=== PATIENT | male | born 1980 | race Two or more races ===

== ENCOUNTER → 2017-02-21 | Emergency (ER) | payer MEDICAID ==
[~2017-02-21] VITALS: Ht 172.7 cm; Wt 51.7 kg
[~2017-02-21] MED LIST: KETOROLAC TROMETH 30 MG/ML 1ML VIAL IV ONE
[2017-02-21 16:47] LABS: Albumin 4.1 g/dL (3.4-5.0); BUN/Creatinine Ratio 18.6; Bilirubin, Total 0.4 mg/dL (0.2-1.0); Calcium 8.7 mg/dL (8.5-10.1); Potassium 4.3 mmol/L (3.5-5.1); Total Protein 7.8 g/dL (6.4-8.2)
[2017-02-21 16:56] LABS: Basophils # (auto) 0 uL; Basophils % (auto) 0.5 % (0.0-2.0); Eosinophils # (auto) 0.1 uL; Hematocrit 43.2 % (41.0-53.0); Hemoglobin 14.7 g/dL (13.5-17.5); Lymphocytes # (auto) 1.4 uL; Lymphocytes % (auto) 28.7 % (10.0-50.0); Mean Corpuscular Hemoglobin 31.5 pg (28.0-32.0); Mean Corpuscular Hgb Conc. 34.1 g/dL (32.0-36.0); Mean Corpuscular Volume 92.2 fL (80.0-100.0); Mean Platelet Volume 10.6 fL (6.9-10.8); Monocytes # (auto) 0.2 uL; Monocytes % (auto) 4.7 % (0.0-12.0); Neutrophils # (auto) 3.2 uL; Neutrophils % (auto) 65.1 % (37.0-80.0); Platelet Count (auto) 183 10^3/uL (140-450); Red Cell Distribution Width 12.7 % (11.8-14.3); White Blood Cell 4.9 10^3/uL (4.4-10.8)
[2017-02-22 03:11] VITALS: BP 115/76
== END | disposition home or self-care (01) ==
LOC: ER 15:00
DX: M13.812 Other specified arthritis, left shoulder (principal); M54.2 Cervicalgia; Z88.0 Allergy status to penicillin; Z88.1 Allergy status to other antibiotic agents; G80.9 Cerebral palsy, unspecified
CPT/HCPCS: 36415; 71010; 80053; 85025; 96374

== ENCOUNTER 2017-05-26 08:15 | Emergency (ER) | payer MEDICAID ==
[~2017-05-26] VITALS: Ht 172.7 cm; Wt 47.6 kg
[2017-05-26 08:58] LABS: Basophils # (auto) 0 uL; Basophils % (auto) 0.4 % (0.0-2.0); Eosinophils # (auto) 0.1 uL; Hematocrit 42.3 % (41.0-53.0); Hemoglobin 14.6 g/dL (13.5-17.5); Lymphocytes # (auto) 1.5 uL; Lymphocytes % (auto) 17.7 % (10.0-50.0); Mean Corpuscular Hemoglobin 31.7 pg (28.0-32.0); Mean Corpuscular Hgb Conc. 34.4 g/dL (32.0-36.0); Mean Corpuscular Volume 92.1 fL (80.0-100.0); Monocytes # (auto) 0.5 uL; Monocytes % (auto) 5.3 % (0.0-12.0); Neutrophils # (auto) 6.5 uL; Neutrophils % (auto) 75.6 % (37.0-80.0); Nucleated Red Blood Cells % 0.1 %; Platelet Count (auto) 185 10^3/uL (140-450); Red Blood Cells 4.59 10^6/uL (4.5-5.90); Red Cell Distribution Width 12.7 % (11.8-14.3); White Blood Cell 8.6 10^3/uL (4.4-10.8)
[2017-05-26 09:28] LABS: Albumin 4.1 g/dL (3.4-5.0); BUN/Creatinine Ratio 21.7; Bilirubin, Total 0.5 mg/dL (0.2-1.0); Total Protein 7.6 g/dL (6.4-8.2)
[2017-05-26] MEDS ORDERED: Acetam/CODEINE 120mg/12mg per 5mL UD PO ONE (13:30)
[2017-05-26] MEDS ORDERED: KETOROLAC TROMETH 60MG/2ML VIAL IM ONE (15:45)
[2017-05-26 16:09] VITALS: BP 114/67
== END 2017-05-26 16:24 | disposition home or self-care (01) ==
LOC: ER 08:15
DX: R07.89 Other chest pain (principal); M25.512 Pain in left shoulder; G80.9 Cerebral palsy, unspecified; Z88.1 Allergy status to other antibiotic agents; Z88.0 Allergy status to penicillin
CPT/HCPCS: 36415; 71046; 73030; 80053; 84484; 85025; 93005; 96372; 99285; J1885

== ENCOUNTER 2018-09-28 21:35 | Emergency (ER) | payer MEDICAID ==
[~2018-09-28] VITALS: Ht 170.2 cm; Wt 49.9 kg
[2018-09-28] MEDS ORDERED: FAMOTIDINE (10MG/ML) 2ML VL IV ONE (22:00)
[2018-09-28] MEDS ORDERED: methylPREDNISolone SOD SUCC 125 MG/2 ML VL IV ONE (22:00)
[2018-09-28] MEDS ORDERED: EPINEPHrine HCL 1 MG/1 ML AMP SC ONE (22:00)
[2018-09-28] MEDS ORDERED: diphenhdrAMINE HCL 50 MG/1 ML VL IV ONE (22:00)
[2018-09-28 22:11] VITALS: BP 124/86
[2018-09-28] MEDS ORDERED: SODIUM CHLORIDE 0.9% 1,000 ML IV ONE (23:30)
== END 2018-09-29 01:47 | disposition left against medical advice (07) ==
LOC: ER 21:37
DX: T78.40XA Allergy, unspecified, initial encounter (principal); Z53.21 Procedure and treatment not carried out due to patient leaving prior to being seen by health care provider; X58.XXXA Exposure to other specified factors, initial encounter
CPT/HCPCS: J0171; J1200; J2930; J3490; J7030; 96372; 96374; 96375

== ENCOUNTER 2020-02-12 13:22 | Inpatient (IN) | payer MEDICAID ==
[~2020-02-12] VITALS: Ht 175.3 cm; Wt 56.5 kg
[2020-02-12] MEDS ORDERED: LORazepam 2MG/ML-1ML VIAL IV ONE ×2 (14:00→15:30)
[2020-02-12] MEDS ORDERED: diphenhdrAMINE HCL 50 MG/1 ML VL IV ONE (14:00)
[2020-02-12 14:19] LABS: Basophils # (auto) 0 10 ^3/uL (0-0.2); Basophils % (auto) 0.5 % (0.0-2.0); Eosinophils # (auto) 0.1 10 ^3/uL (0-0.8); Hematocrit 43.3 % (41.0-53.0); Hemoglobin 15.2 g/dL (13.5-17.5); Lymphocytes # (auto) 1.4 10 ^3/uL (0.4-5.4); Lymphocytes % (auto) 28.1 % (10.0-50.0); Mean Corpuscular Hemoglobin 31.6 pg (28.0-32.0); Mean Corpuscular Hgb Conc. 35.1 g/dL (32.0-36.0); Monocytes # (auto) 0.3 10 ^3/uL (0-1.3); Monocytes % (auto) 5.7 % (0.0-12.0); Neutrophils # (auto) 3.3 10 ^3/uL (1.6-8.6); Neutrophils % (auto) 64.7 % (37.0-80.0); Nucleated Red Blood Cells % 0.1 %; Platelet Count (auto) 209 10^3/uL (140-450); Red Blood Cells 4.81 10^6/uL (4.5-5.90); Red Cell Distribution Width 12.7 % (11.8-14.3); White Blood Cell 5.1 10^3/uL (4.4-10.8)
[2020-02-12 14:36] LABS: Albumin 4.1 g/dL (3.4-5.0); Calcium 9.3 mg/dL (8.5-10.1); Potassium 3.7 mmol/L (3.5-5.1)
[2020-02-12 14:38] LABS: BUN/Creatinine Ratio 9.7
[2020-02-12 14:48] LABS: Bilirubin, Total 0.8 mg/dL (0.2-1.0); Total Protein 7.6 g/dL (6.4-8.2)
[2020-02-12] MEDS ORDERED: MORPHINE SULF INJ 2 MG/ML SYRINGE 1ML IV PRN (15:30)
[2020-02-12] MEDS ORDERED: NITROGLYCERIN 0.4 MG SL TAB SL PRN (15:30)
[2020-02-12] MEDS ORDERED: LABETALOL HCL 5 MG/ML 4ML SYRINGE IV PRN (15:30)
[2020-02-12] MEDS ORDERED: [UNRECOGNIZED DRUG - CODE] PO (16:09)
[2020-02-12] MEDS ORDERED: ACET-1304 PO (16:09)
[2020-02-12 16:34] LABS: Urine WBC None Seen /hpf (0 - 3)
[2020-02-12] MEDS: D5W/SOD CHLO 0.9% 1,000 ML IV SCH (16:53)
[2020-02-12 17:02] LABS: Urine Bacteria NONE SEEN /hpf (None Seen); Urine Blood Negative /uL (Negative); Urine Specific Gravity 1.005 (1.001-1.035)
[2020-02-12] MEDS ORDERED: LORazepam 2MG/ML-1ML VIAL IV PRN (18:00)
[2020-02-12 21:15] LABS: Amphetamine Screen, Urine NEGATIVE (NEGATIVE); Barbiturate Scree,Urine NEGATIVE (NEGATIVE); Benzodiazephine Screen, Urine NEGATIVE (NEGATIVE); Cannabinoid Screen, Urine NEGATIVE (NEGATIVE); Cocaine Screen, Urine NEGATIVE (NEGATIVE); Opiate Scree,Urine NEGATIVE (NEGATIVE); Phencyclidine Screen, Urine NEGATIVE (NEGATIVE)
[2020-02-12] MEDS ORDERED: levETIRAcetam 500 MG/5ML INJ IV ONE (22:57)
[2020-02-13] MEDS: D5W/SOD CHLO 0.9% 1,000 ML IV SCH ×2 (02:18→18:29)
[2020-02-13 07:08] LABS: Basophils # (auto) 0 10 ^3/uL (0-0.2); Basophils % (auto) 0.7 % (0.0-2.0); Eosinophils # (auto) 0.1 10 ^3/uL (0-0.8); Eosinophils % (auto) 2.2 % (0.0-7.0); Hematocrit 42.2 % (41.0-53.0); Hemoglobin 14.7 g/dL (13.5-17.5); Lymphocytes # (auto) 1.7 10 ^3/uL (0.4-5.4); Mean Corpuscular Hemoglobin 31.9 pg (28.0-32.0); Mean Corpuscular Hgb Conc. 34.7 g/dL (32.0-36.0); Monocytes # (auto) 0.3 10 ^3/uL (0-1.3); Neutrophils % (auto) 48.1 % (37.0-80.0); Nucleated Red Blood Cells % 0.1 %; Platelet Count (auto) 184 10^3/uL (140-450); Red Blood Cells 4.59 10^6/uL (4.5-5.90); Red Cell Distribution Width 12.8 % (11.8-14.3); White Blood Cell 4.2 10^3/uL (4.4-10.8)
[2020-02-13 07:23] LABS: Albumin 3.7 g/dL (3.4-5.0); Calcium 8.8 mg/dL (8.5-10.1); Magnesium 2.6 mg/dL (1.6-2.6); Potassium 3.6 mmol/L (3.5-5.1)
[2020-02-13 07:29] LABS: BUN/Creatinine Ratio 15.4; Bilirubin, Total 1.1 mg/dL (0.2-1.0); Total Protein 6.9 g/dL (6.4-8.2)
[2020-02-13 07:56] LABS: INR 1.03 (0.9-1.15); Partial Thromboplastin Time 28.3 sec (23.0-31.2)
[2020-02-13] MEDS ORDERED: NITROGLYCERIN 0.4 MG SL TAB SL PRN (10:45)
[2020-02-13] MEDS ORDERED: CLINDAMYCIN 600MG IV 50 ML IV ONE (10:45)
[2020-02-13] MEDS ORDERED: ONDANSETRON HCL 4 MG/2 ML VIAL IV PRN (10:45)
[2020-02-13] MEDS ORDERED: ALUM & MAG HYDROX-SIMETH LIQ(MAALOX) 30 ML PO PRN (10:45)
[2020-02-13] MEDS ORDERED: MORPHINE SULF INJ 2 MG/ML SYRINGE 1ML IV PRN ×2 (10:45)
[2020-02-13] MEDS ORDERED: DOCUSATE SOD 100 MG CAP PO PRN (10:45)
[2020-02-13] MEDS ORDERED: HYDROcodone-ACET 5/325MG TAB PO PRN (10:45)
[2020-02-13] MEDS: PANTOPRAZOLE 40 MG/10 ML VIAL INJ IV SCH (11:02)
[2020-02-13] MEDS: ENOXAPARIN SOD 40 MG/0.4 ML SYRINGE SC SCH (11:02)
--- NOTE | 2020-02-13 11:12 | NUR ---
EEG-ELECTROENCEPHALOGRAM COMPLETED AT BEDSIDE @ 10:50.
--- NOTE | 2020-02-13 11:15 | NUR ---
CAREGIVER SWAPNIL LERNER AT BEDSIDE ASSISTING WITH ADMISSION PROCESS.
--- NOTE | 2020-02-13 11:15 | NUR ---
MS admit from ER WINIFRED OLIVARES admitted to tele/MS after SBAR received. Patient oriented to YUSUF TIJERINA, RN primary RN, TELE unit, room 296, bed B, and unit policies regarding patient care and visiting hours. Patient weighed by bedscale and encouraged to call if they need something. All questions and concerns addressed, patient verbalized understanding.
[2020-02-13] MEDS: SODIUM CHLORIDE 0.9% 1,000 ML IV SCH (12:02)
[2020-02-13 12:10] VITALS: BP 110/74
[2020-02-13] MEDS ORDERED: AZTREONAM 1GM INJ 1 GM in D5W 5% 50 ML IV ONE (12:30)
[2020-02-13 12:36] VITALS: BP 110/74
[2020-02-13 13:00] VITALS: BP_SYST 144; BP_SYST 97; BP_DIAS 58; BP_DIAS 85
[2020-02-13] MEDS: ACETAMINOPHEN 325 MG TAB PO PRN (13:15)
--- NOTE | 2020-02-13 13:54 | NUR ---
WOUND CARE NOTE: Wound care in to see patient per wound care request regarding low Paco score of 14, cerebral palsy patient, putting patient to high risk for skin breakdown. Patient is 39 years old male admitted for Seizures. Patient is resting in bed in Rm. 296B. Patient is awake, and non-verbal. Patient appears to be in no pain using Chand Palacios Faces Pain Scale. No wound noted other than intact yellow calloused area to patient's L lateral foot. Patient's mother who is patient's neonatal intensive care unit nurse is at bedside reported that he showed patient's calloused to his PCP and he's given a topical cream to apply daily. Patient's family skin care education provided,; emphasizing the importance of frequent turning and repositioning to prevent pressure injury. Patient's mother, verbalized understanding. Patient is receiving BID/PRN cleaning and application of Barrier cream to sacral, buttocks as preventative. Patient tolerated well, his mother at bedside. RECOMMENDATION: Nursing to continue with BID/PRN cleaning and application of Barrier cream to sacral, buttocks as preventative, frequent turning and repositioning schedule as condition permits, redistribute pressure points with pillows, elevate heels on pillows, frequent chaka care/check, keep clean and dry, continue monitoring by wound care while patient is hospitalized. Addendum: 02/13/20 at 1503 by Sil Dunn RN Amended: Links added.
[2020-02-13] MEDS ORDERED: IBUP800T24 PO (15:39)
[2020-02-13 17:00] VITALS: BP 89/58
--- NOTE | 2020-02-13 19:10 | NUR ---
Opening Shift Note Assumed care of patient, awake and alert. Pt is aphastic but understands concepts and follows along with discussion non verbally. Pt mother at bedside. No S/S of distress/SOB or pain. Pt and mother instructed on POC and to call for assist PRN, will continue to monitor for changes Q1hr and PRN. Safety measures in place, bed in lowest locked position, bed rails raised x2, seizure precautions in place, call light within reach.
[2020-02-13] MEDS: CLINDAMYCIN 600MG IV 50 ML IV SCH (20:13)
[2020-02-13 22:00] VITALS: BP 94/60
[2020-02-13] MEDS: AZTREONAM 1GM INJ 1 GM in D5W 5% 50 ML IV SCH (22:19)
[2020-02-13] MEDS: levETIRAcetam 500 MG TAB PO SCH (22:19)
[2020-02-14] MEDS: SODIUM CHLORIDE 0.9% 1,000 ML IV SCH (03:32)
[2020-02-14] MEDS: CLINDAMYCIN 600MG IV 50 ML IV SCH ×4 (04:42→19:41)
[2020-02-14 05:00] VITALS: BP 95/55
[2020-02-14] MEDS: ACETAMINOPHEN 325 MG TAB PO PRN (06:15)
[2020-02-14] MEDS: AZTREONAM 1GM INJ 1 GM in D5W 5% 50 ML IV SCH ×3 (06:15→22:00)
[2020-02-14 08:35] VITALS: BP 103/71
[2020-02-14] MEDS: ENOXAPARIN SOD 40 MG/0.4 ML SYRINGE SC SCH (09:43)
[2020-02-14] MEDS: PANTOPRAZOLE 40 MG/10 ML VIAL INJ IV SCH (09:43)
[2020-02-14] MEDS: levETIRAcetam 500 MG TAB PO SCH (09:44)
[2020-02-14] MEDS: D5W/SOD CHLO 0.9% 1,000 ML IV SCH ×2 (09:56→20:50)
--- NOTE | 2020-02-14 10:05 | NUR ---
Nutrition Consult Continue with max assist and with pureed diet d/t to dysphagia, pt with no wounds skin is intact Est energy needs [id number] kcal (25-30 kcal/kg BW 57.8kg) Est protein needs 58-69g (1-1.2g/kg BW 57.8kg) Will reassess prn. Addendum: 02/14/[address] at [address] Amended: Links added.
--- NOTE | 2020-02-14 10:34 | NUR ---
DR. FULLER ROUNDING: PLAN TO R/O ASPIRATION FROM RECENT SEIZURE, CXR, ANTIBIOTIC PROPHYLAXIS, CONTINUE TREATMENT FROM MD WATT, AND FOR ACUTE NECK PAIN CERVICAL CT. PATIENT LUNGS SOUNDS CLEAR, 100% ON ROOM AIR CAREGIVER VERY CAUTIOUS AND IMPLEMENTS ASPIRATION PRECAUTIONS WITH FEEDING, MD MADE AWARE OF THIS.
[2020-02-14] MEDS ORDERED: METHOCARBAMOL 500 MG TAB PO PRN (11:15)
--- NOTE | 2020-02-14 12:47 | NUR ---
CARE ENDORSED TO MING PINK.
--- NOTE | 2020-02-14 12:50 | NUR ---
Received patient into 202 Received transfer patient from [facility] after SBAR report received from APRYL Dumont. Patient connected to telemetry monitoring, no s/s of distress or pain reported at this time. Patient's mother is at bedside. Bed in lowest locked position, mother and patient instructed to call for assistance as needed.
--- NOTE | 2020-02-14 15:25 | NUR ---
paged regarding constipation Dr. Martinez paged regarding patient complaining of constipation and unable to swallow Colace. New orders received for Lactulose 30ml q6hrs PRN for constipation. Order read back and verified twice. Will implement orders at this time and continue care.
[2020-02-14] MEDS: LACTULOSE 20Gm/30ML SOLN PO PRN (15:51)
[2020-02-14 16:46] VITALS: BP 109/65
--- NOTE | 2020-02-14 18:43 | NUR ---
Neurology cleared patient Dr. Giang at bedside, per Dr. Giang patient is cleared to be DC from Neurology standpoint. Mom at bedside updated on POC and recommendations, all questions and concerns addressed will continue care.
[2020-02-14] MEDS ORDERED: AZTREONAM 1 GM INJ VIAL ONE (21:40)
[2020-02-14 22:00] VITALS: BP 98/61
[2020-02-14] MEDS: levETIRAcetam 500 MG/5ML ORAL SOLN UD PO SCH (22:19)
[2020-02-14 22:42] VITALS: BP 98/61
[2020-02-14 22:51] VITALS: BP 98/61
[2020-02-15] MEDS: LORazepam 0.5 MG TAB PO PRN (00:11)
[2020-02-15] MEDS: CLINDAMYCIN 600MG IV 50 ML IV SCH (03:38)
--- NOTE | 2020-02-15 05:44 | NUR ---
REFUSED VITALS SIGNS FOR 0600H PER MOTHER'S REQUEST, APRYL RUSHING AWARE.
[2020-02-15] MEDS: AZTREONAM 1GM INJ 1 GM in D5W 5% 50 ML IV SCH (06:00)
--- NOTE | 2020-02-15 06:48 | NUR ---
end of shift noted will endorse pt care to day shift RN . pt is a0x1, no s/s of distress or sob
[2020-02-15 08:37] VITALS: BP 90/60
[2020-02-15] MEDS: LACTULOSE 20Gm/30ML SOLN PO PRN (09:16)
[2020-02-15] MEDS: levETIRAcetam 500 MG/5ML ORAL SOLN UD PO SCH ×2 (09:16→21:55)
[2020-02-15] MEDS: PANTOPRAZOLE 40 MG/10 ML VIAL INJ IV SCH (09:16)
[2020-02-15] MEDS: ACETAMINOPHEN 325 MG TAB PO PRN ×3 (09:17→23:08)
[2020-02-15] MEDS: ENOXAPARIN SOD 40 MG/0.4 ML SYRINGE SC SCH (09:17)
[2020-02-15] MEDS: D5W/SOD CHLO 0.9% 1,000 ML IV SCH (09:18)
[2020-02-15 13:00] VITALS: BP 90/53
[2020-02-15] MEDS ORDERED: POTASSIUM EFFERVESENT TAB 25 MEQ PO ONE (13:00)
[2020-02-15] MEDS ORDERED: FUROSEMIDE 40 MG/4 ML VIAL IV ONE (13:00)
[2020-02-15] MEDS ORDERED: LACTULOSE 20Gm/30ML SOLN PO ONE (14:00)
[2020-02-15 17:00] VITALS: BP 110/77
--- NOTE | 2020-02-15 19:30 | NUR ---
Opening Shift Note Assumed care of patient, awake and alert. Pt is aphastic but understands concepts and follows along with discussion non verbally. Pt mother at bedside. No S/S of distress/SOB. Pt mother states that the pt has been experiencing pain in the right neck and base of skull but is "OK" right now. Pt and mother instructed on POC and to call for assist PRN, will continue to monitor for changes Q1hr and PRN. Safety measures in place, bed in lowest locked position, bed rails raised x2, seizure precautions in place, call light within reach.
[2020-02-15 21:31] VITALS: BP 104/71
[2020-02-15] MEDS: LACTULOSE 20Gm/30ML SOLN PO SCH (21:47)
--- NOTE | 2020-02-16 02:10 | NUR ---
Pt mother called nurses station for assistance. Entered room, pt restless and lawrence extremities. Pt mother states the pt is complaining of pain in the right neck and base of skull. Pt offered heat pack and given Ativan PRN for anxiety. Pt mother states that the pt is having a seizure, however the pt does not present with seizure signs, is able to answer questions and respond throughout the "episode" and relax periodically. After offering relaxation techniques such as heat pack, gentle massage and dim lighting, pt showed signs of relaxation. Pt mother states that these "episodes" happen often at home but do not normally last this long. She states that the pt is not currently prescribed an antianxiety or PRN seizure medication for home. Pt advised to speak with physician about her concerns before discharge home. Pt mother verbalized understanding. Will continue to monitor.
[2020-02-16] MEDS: LORazepam 0.5 MG TAB PO PRN (02:49)
[2020-02-16 05:00] VITALS: BP 129/80
[2020-02-16] MEDS: ACETAMINOPHEN 325 MG TAB PO PRN (05:15)
[2020-02-16 09:00] VITALS: BP 114/76
[2020-02-16] MEDS: levETIRAcetam 500 MG/5ML ORAL SOLN UD PO SCH (09:39)
[2020-02-16] MEDS: LACTULOSE 20Gm/30ML SOLN PO SCH (09:39)
[2020-02-16] MEDS: PANTOPRAZOLE 40 MG/10 ML VIAL INJ IV SCH (09:39)
[2020-02-16] MEDS: ENOXAPARIN SOD 40 MG/0.4 ML SYRINGE SC SCH (09:43)
[2020-02-16] MEDS ORDERED: levoFLOXacin 250 MG TAB PO SCH (10:00)
[2020-02-16] MEDS ORDERED: FUROSEMIDE 20 MG/2 ML VIAL IV SCH (10:00)
[2020-02-16] MEDS ORDERED: POTASSIUM EFFERVESENT TAB 25 MEQ PO SCH (10:00)
[2020-02-16 12:58] VITALS: BP 106/67
[2020-02-16 15:05] VITALS: BP 106/67
[2020-02-16 17:00] VITALS: BP 108/65
--- NOTE | 2020-02-16 17:56 | NUR ---
DISCHARGE INSTRUCTIONS PROVIDED TO PT AND MOTHER. MOTHER VERBALIZED UNDERSTANDING FOR PRESCRIPTION ORDER AND FOLLOW UP APPOINTMENT WITH PCP. EDUCATIONAL MATERIAL PROVIDED, ALL QUESTIONS AND CONCERNS ADDRESSED. TELE BOX REMOVED AND RETURNED TO TELE DEPT. IV CATHETER DC'D CATHETER INTACT. NO PHLEBITIS. PT SAFELY ESCORTED OUT OF UNIT VIA WHEELCHAIR. NO S/S OF DISTRESS.
== END 2020-02-16 18:00 | disposition home or self-care (01) | DRG 53 ==
LOC: ER 13:22 → TELE 13:23 → TELE-WESTW 02-13 11:20 → CENTRAL 02-14 12:07 → TELE-CENTR 02-14 18:11
PROVIDERS: ATTEND Internal Medicine Nephrology
DX: G40.401 Other generalized epilepsy and epileptic syndromes, not intractable, with status epilepticus (principal); E44.0 Moderate protein-calorie malnutrition; R53.2 Functional quadriplegia; M48.02 Spinal stenosis, cervical region; M53.82 Other specified dorsopathies, cervical region; F79 Unspecified intellectual disabilities; G80.9 Cerebral palsy, unspecified; Z74.01 Bed confinement status; E86.0 Dehydration; Z82.49 Family history of ischemic heart disease and other diseases of the circulatory system; Z83.3 Family history of diabetes mellitus; Z88.1 Allergy status to other antibiotic agents; Z88.0 Allergy status to penicillin
CPT/HCPCS: 36415; 70450; 71045; 72125; 80053; 80307; 81001; 83735; 84443; 85025; 85610; 85730; 87040; 87086; 95819; 96361; 96365; 96375; 96376; 99291; C9113; G0378; J3490; J7042; J7060

== ENCOUNTER 2020-06-17 20:01 | Inpatient (IN) | payer MEDICAID ==
[~2020-06-17] VITALS: Ht 172.7 cm; Wt 47.4 kg
[~2020-06-17 20:01] MED LIST changes: +ACET-1304 PO; +IBUP800T27 PO; -KETOROLAC TROMETH 30 MG/ML 1ML VIAL IV ONE; +[UNRECOGNIZED DRUG - CODE] PO
[2020-06-17] MEDS ORDERED: SODIUM CHLORIDE 0.9% 1,000 ML IVB ONE (21:00)
[2020-06-17] MEDS ORDERED: LORazepam 0.5 MG TAB PO PRN (21:45)
[2020-06-17 21:47] LABS: Basophils # (auto) 0.1 10 ^3/uL (0-0.2); Basophils % (auto) 1.2 % (0.0-2.0); Eosinophils # (auto) 0.1 10 ^3/uL (0-0.8); Eosinophils % (auto) 1.8 % (0.0-7.0); Hematocrit 39.8 % (41.0-53.0); Hemoglobin 13.8 g/dL (13.5-17.5); Lymphocytes # (auto) 1.9 10 ^3/uL (0.4-5.4); Lymphocytes % (auto) 34.4 % (10.0-50.0); Mean Corpuscular Hemoglobin 31.8 pg (28.0-32.0); Mean Corpuscular Hgb Conc. 34.6 g/dL (32.0-36.0); Mean Corpuscular Volume 91.9 fL (80.0-100.0); Monocytes # (auto) 0.4 10 ^3/uL (0-1.3); Monocytes % (auto) 7.6 % (0.0-12.0); Platelet Count (auto) 210 10^3/uL (140-450); Red Blood Cells 4.33 10^6/uL (4.5-5.90); White Blood Cell 5.4 10^3/uL (4.4-10.8)
[2020-06-17] MEDS: LORazepam 2MG/ML-1ML VIAL IV PRN ×3 (21:57→23:43)
[2020-06-17 22:06] LABS: Albumin 3.9 g/dL (3.4-5.0); Calcium 8.4 mg/dL (8.5-10.1); Magnesium 2.4 mg/dL (1.6-2.6); Potassium 3.4 mmol/L (3.5-5.1)
[2020-06-17 22:10] LABS: BUN/Creatinine Ratio 10.3; Bilirubin, Total 0.5 mg/dL (0.2-1.0); Total Protein 7.2 g/dL (6.4-8.2)
[2020-06-18] MEDS: LORazepam 2MG/ML-1ML VIAL IV PRN ×4 (00:25→05:38)
[2020-06-18 00:35] LABS: Urine Bacteria NONE SEEN /hpf (None Seen); Urine Blood Negative /uL (Negative); Urine Specific Gravity 1.008 (1.001-1.035); Urine WBC 3 /hpf (0 - 3)
[2020-06-18] MEDS ORDERED: NITROGLYCERIN 0.4 MG SL TAB SL PRN (06:45)
[2020-06-18] MEDS ORDERED: POTASSIUM CHL 20MEQ/100ML 100 ML IV ONE (06:45)
[2020-06-18] MEDS ORDERED: DOCUSATE SOD 100 MG CAP PO PRN (06:45)
[2020-06-18] MEDS ORDERED: ACETAMINOPHEN 325 MG TAB PO PRN (06:45)
[2020-06-18] MEDS ORDERED: ONDANSETRON HCL 4 MG/2 ML VIAL IV PRN (06:45)
[2020-06-18] MEDS ORDERED: MORPHINE SULF INJ 2 MG/ML SYRINGE 1ML IV PRN (06:45)
[2020-06-18 07:32] LABS: Basophils # (auto) 0 10 ^3/uL (0-0.2); Basophils % (auto) 0.9 % (0.0-2.0); Eosinophils # (auto) 0.1 10 ^3/uL (0-0.8); Eosinophils % (auto) 2.6 % (0.0-7.0); Hematocrit 39.9 % (41.0-53.0); Hemoglobin 13.6 g/dL (13.5-17.5); Lymphocytes # (auto) 1.8 10 ^3/uL (0.4-5.4); Lymphocytes % (auto) 38.8 % (10.0-50.0); Mean Corpuscular Hemoglobin 31.4 pg (28.0-32.0); Mean Corpuscular Hgb Conc. 34.1 g/dL (32.0-36.0); Mean Corpuscular Volume 92.1 fL (80.0-100.0); Monocytes # (auto) 0.3 10 ^3/uL (0-1.3); Monocytes % (auto) 7.6 % (0.0-12.0); Neutrophils # (auto) 2.3 10 ^3/uL (1.6-8.6); Neutrophils % (auto) 50.1 % (37.0-80.0); Nucleated Red Blood Cells % 0.2 %; Platelet Count (auto) 192 10^3/uL (140-450); Red Blood Cells 4.33 10^6/uL (4.5-5.90); Red Cell Distribution Width 12.9 % (11.8-14.3); White Blood Cell 4.6 10^3/uL (4.4-10.8)
[2020-06-18 07:42] LABS: Albumin 3.9 g/dL (3.4-5.0); Calcium 8.8 mg/dL (8.5-10.1)
[2020-06-18 07:45] LABS: BUN/Creatinine Ratio 10.3
[2020-06-18] MEDS: SOD CHL 0.45% 1,000 ML IV SCH (07:45)
[2020-06-18 07:51] LABS: Bilirubin, Total 0.7 mg/dL (0.2-1.0); Total Protein 6.7 g/dL (6.4-8.2)
[2020-06-18] MEDS: ASCORBIC ACID 500 MG TAB PO SCH ×2 (10:00→22:50)
[2020-06-18] MEDS: MULTIPLE VITAMIN TAB PO SCH (10:00)
[2020-06-18] MEDS: FAMOTIDINE (10MG/ML) 2ML VL IV SCH ×2 (10:55→22:50)
[2020-06-18] MEDS: ENOXAPARIN SOD 30 MG/0.3 ML SYRINGE SC SCH (10:55)
[2020-06-18] MEDS: HYDROcodone-ACET 5/325MG TAB PO PRN (16:20)
[2020-06-19] MEDS: SOD CHL 0.45% 1,000 ML IV SCH ×3 (02:50→15:59)
[2020-06-19 06:38] LABS: Basophils # (auto) 0.1 10 ^3/uL (0-0.2); Basophils % (auto) 3.1 % (0.0-2.0); Eosinophils # (auto) 0.2 10 ^3/uL (0-0.8); Eosinophils % (auto) 3.9 % (0.0-7.0); Hematocrit 43.8 % (41.0-53.0); Lymphocytes # (auto) 1.3 10 ^3/uL (0.4-5.4); Lymphocytes % (auto) 29.9 % (10.0-50.0); Mean Corpuscular Hemoglobin 31.4 pg (28.0-32.0); Mean Corpuscular Hgb Conc. 34.3 g/dL (32.0-36.0); Mean Corpuscular Volume 91.5 fL (80.0-100.0); Monocytes # (auto) 0.3 10 ^3/uL (0-1.3); Monocytes % (auto) 6.6 % (0.0-12.0); Neutrophils # (auto) 2.4 10 ^3/uL (1.6-8.6); Neutrophils % (auto) 56.5 % (37.0-80.0); Nucleated Red Blood Cells % 0.1 %; Platelet Count (auto) 200 10^3/uL (140-450); Red Blood Cells 4.78 10^6/uL (4.5-5.90); White Blood Cell 4.2 10^3/uL (4.4-10.8)
[2020-06-19 07:01] LABS: Potassium 3.8 mmol/L (3.5-5.1)
[2020-06-19 07:08] LABS: Albumin 3.8 g/dL (3.4-5.0); BUN/Creatinine Ratio 12.5; Bilirubin, Total 0.4 mg/dL (0.2-1.0); Calcium 8.7 mg/dL (8.5-10.1); Total Protein 7.3 g/dL (6.4-8.2)
[2020-06-19] MEDS: ASCORBIC ACID 500 MG TAB PO SCH ×2 (09:02→15:58)
[2020-06-19] MEDS: FAMOTIDINE (10MG/ML) 2ML VL IV SCH ×2 (09:02→15:58)
[2020-06-19] MEDS: ENOXAPARIN SOD 30 MG/0.3 ML SYRINGE SC SCH ×2 (09:02→15:59)
[2020-06-19] MEDS: MULTIPLE VITAMIN TAB PO SCH ×2 (09:02→15:59)
[2020-06-19] MEDS ORDERED: HYDROcodone-ACET 5/325MG TAB PO PRN (15:30)
[2020-06-19 18:00] VITALS: BP 122/75
[2020-06-19] MEDS ORDERED: LEVE500T32 PO (18:24)
[2020-06-19] MEDS ORDERED: HYDR-4902 PO (18:24)
[2020-06-19] MEDS ORDERED: VALB80CA PO (18:24)
[2020-06-19] MEDS ORDERED: DIPH25CA66 PO (18:24)
[2020-06-19] MEDS: HYDROcodone-ACET 5/325MG TAB PO PRN (18:33)
[2020-06-19 22:00] VITALS: BP 137/77
[2020-06-20] MEDS: HYDROcodone-ACET 5/325MG TAB PO PRN ×2 (01:59→14:14)
[2020-06-20 05:00] VITALS: BP 104/65
[2020-06-20 05:47] LABS: Basophils # (auto) 0.1 10 ^3/uL (0-0.2); Basophils % (auto) 1.4 % (0.0-2.0); Eosinophils # (auto) 0.2 10 ^3/uL (0-0.8); Eosinophils % (auto) 4.9 % (0.0-7.0); Hemoglobin 14.9 g/dL (13.5-17.5); Lymphocytes # (auto) 1.5 10 ^3/uL (0.4-5.4); Lymphocytes % (auto) 33.5 % (10.0-50.0); Mean Corpuscular Hemoglobin 31.7 pg (28.0-32.0); Mean Corpuscular Hgb Conc. 34.5 g/dL (32.0-36.0); Mean Corpuscular Volume 91.7 fL (80.0-100.0); Monocytes # (auto) 0.3 10 ^3/uL (0-1.3); Neutrophils # (auto) 2.4 10 ^3/uL (1.6-8.6); Neutrophils % (auto) 54.2 % (37.0-80.0); Nucleated Red Blood Cells % 0.2 %; Platelet Count (auto) 204 10^3/uL (140-450); Red Blood Cells 4.69 10^6/uL (4.5-5.90); Red Cell Distribution Width 13.1 % (11.8-14.3); White Blood Cell 4.4 10^3/uL (4.4-10.8)
[2020-06-20 06:07] LABS: BUN/Creatinine Ratio 14.5; Calcium 8.8 mg/dL (8.5-10.1); Potassium 3.7 mmol/L (3.5-5.1)
[2020-06-20 08:00] VITALS: BP 104/69
[2020-06-20] MEDS: FAMOTIDINE (10MG/ML) 2ML VL IV SCH (09:30)
[2020-06-20] MEDS: ASCORBIC ACID 500 MG TAB PO SCH (09:30)
[2020-06-20] MEDS: MULTIPLE VITAMIN TAB PO SCH (09:31)
[2020-06-20] MEDS: SOD CHL 0.45% 1,000 ML IV SCH (09:31)
[2020-06-20] MEDS: ENOXAPARIN SOD 30 MG/0.3 ML SYRINGE SC SCH (09:31)
== END 2020-06-20 14:35 | disposition home or self-care (01) | DRG 756 ==
LOC: ER 20:01 → TELE 20:02 → TELE-EAST 06-19 16:58 → TELE-CENTR 06-19 19:25
PROVIDERS: ADMIT Nurse Practitioner Family; ATTEND Internal Medicine
DX: F44.5 Conversion disorder with seizures or convulsions (principal); F79 Unspecified intellectual disabilities; M41.9 Scoliosis, unspecified; R62.50 Unspecified lack of expected normal physiological development in childhood; E87.6 Hypokalemia; M19.019 Primary osteoarthritis, unspecified shoulder; R63.3 Feeding difficulties; F41.9 Anxiety disorder, unspecified; Z20.822 Contact with and (suspected) exposure to COVID-19; M47.9 Spondylosis, unspecified; M54.2 Cervicalgia; Z82.49 Family history of ischemic heart disease and other diseases of the circulatory system; Z83.3 Family history of diabetes mellitus; Z88.1 Allergy status to other antibiotic agents; Z88.0 Allergy status to penicillin; G80.8 Other cerebral palsy
CPT/HCPCS: 36415; 70450; 72125; 80048; 80053; 80320; 81001; 82542; 82962; 83605; 83735; 85025; 87426; 95819; 96361; 96374; G0378; J3480; J3490; J7060

== ENCOUNTER 2022-03-29 16:18 | Inpatient (IN) | payer MEDICAID ==
[~2022-03-29] VITALS: Ht 170.2 cm; Wt 50.4 kg
[~2022-03-29 16:18] MED LIST changes: +DIPH25CA66 PO; +HYDR-4902 PO; +LEVE500T32 PO; +VALB80CA PO
[2022-03-29] MEDS ORDERED: CLINDAMYCIN 900MG IV 50 ML IV ONE (17:30)
[2022-03-29] MEDS ORDERED: SODIUM CHLORIDE 0.9% 1,000 ML IV ONE (17:30)
[2022-03-29 18:15] LABS: Basophils # (auto) 0 10 ^3/uL (0-0.2); Basophils % (auto) 0.4 % (0.0-2.0); Eosinophils # (auto) 0 10 ^3/uL (0-0.8); Eosinophils % (auto) 0.1 % (0.0-7.0); Hematocrit 42.2 % (41.0-53.0); Hemoglobin 14.3 g/dL (13.5-17.5); Lymphocytes # (auto) 1.4 10 ^3/uL (0.4-5.4); Lymphocytes % (auto) 13.7 % (10.0-50.0); Mean Corpuscular Hemoglobin 30.1 pg (28.0-32.0); Mean Corpuscular Hgb Conc. 33.9 g/dL (32.0-36.0); Mean Corpuscular Volume 88.6 fL (80.0-100.0); Monocytes # (auto) 0.5 10 ^3/uL (0-1.3); Monocytes % (auto) 5.1 % (0.0-12.0); Neutrophils # (auto) 8.4 10 ^3/uL (1.6-8.6); Neutrophils % (auto) 80.7 % (37.0-80.0); Red Blood Cells 4.76 10^6/uL (4.5-5.90); Red Cell Distribution Width 13.3 % (11.8-14.3); White Blood Cell 10.4 10^3/uL (4.4-10.8)
[2022-03-29 18:40] LABS: Albumin 3.7 g/dL (3.4-5.0); Calcium 8.9 mg/dL (8.5-10.1); Potassium 3.9 mmol/L (3.5-5.1)
[2022-03-29 18:49] LABS: BUN/Creatinine Ratio 9.6; Bilirubin, Total 0.6 mg/dL (0.2-1.0); CRP High Sensitivity 10.4 mg/dL (< 0.3); Total Protein 7.7 g/dL (6.4-8.2)
[2022-03-29] MEDS ORDERED: fentaNYL CITRATE 100 MCG/2 ML VL IV ONE (20:45)
[2022-03-30] MEDS ORDERED: fentaNYL CITRATE 100 MCG/2 ML VL IM ONE (00:15)
[2022-03-30] MEDS ORDERED: NITROGLYCERIN 0.4 MG SL TAB SL PRN (00:45)
[2022-03-30] MEDS ORDERED: MORPHINE SULFATE INJ 2 MG/ml SYRG IV PRN (00:45)
[2022-03-30] MEDS ORDERED: SOD CHL 0.45% 1,000 ML IV SCH (00:45)
[2022-03-30] MEDS ORDERED: ACETAMINOPHEN 325 MG TAB PO PRN (00:45)
[2022-03-30] MEDS ORDERED: DOCUSATE SOD 100 MG CAP PO PRN (00:45)
[2022-03-30] MEDS: ONDANSETRON HCL 4 MG/2 ML VIAL IV PRN ×2 (01:51→06:03)
[2022-03-30] MEDS: MORPHINE SULFATE INJ 2 MG/ml SYRG IV PRN ×2 (01:55→06:04)
[2022-03-30] MEDS: CLINDAMYCIN 600MG IV 50 ML IV SCH ×3 (06:03→21:02)
[2022-03-30 06:18] LABS: Urine Bacteria NONE SEEN /hpf (None Seen); Urine Blood Negative /uL (Negative); Urine Specific Gravity 1.007 (1.001-1.035); Urine WBC 1 /hpf (0 - 3)
[2022-03-30 06:50] LABS: Basophils # (auto) 0 10 ^3/uL (0-0.2); Basophils % (auto) 0.2 % (0.0-2.0); Eosinophils # (auto) 0 10 ^3/uL (0-0.8); Eosinophils % (auto) 0.5 % (0.0-7.0); Hematocrit 38.2 % (41.0-53.0); Hemoglobin 12.7 g/dL (13.5-17.5); Lymphocytes # (auto) 1.9 10 ^3/uL (0.4-5.4); Lymphocytes % (auto) 21.1 % (10.0-50.0); Mean Corpuscular Hemoglobin 29.8 pg (28.0-32.0); Mean Corpuscular Hgb Conc. 33.2 g/dL (32.0-36.0); Mean Corpuscular Volume 89.7 fL (80.0-100.0); Monocytes # (auto) 0.8 10 ^3/uL (0-1.3); Monocytes % (auto) 8.3 % (0.0-12.0); Neutrophils # (auto) 6.4 10 ^3/uL (1.6-8.6); Neutrophils % (auto) 69.9 % (37.0-80.0); Nucleated Red Blood Cells % 0.2 %; Red Blood Cells 4.26 10^6/uL (4.5-5.90); Red Cell Distribution Width 13.1 % (11.8-14.3); White Blood Cell 9.1 10^3/uL (4.4-10.8)
[2022-03-30 07:04] LABS: Albumin 3.2 g/dL (3.4-5.0); BUN/Creatinine Ratio 6.3; Calcium 8.4 mg/dL (8.5-10.1); Potassium 3.7 mmol/L (3.5-5.1)
[2022-03-30 07:09] LABS: Bilirubin, Total 1.2 mg/dL (0.2-1.0); Total Protein 6.9 g/dL (6.4-8.2)
[2022-03-30] MEDS ORDERED: ENOXAPARIN SOD 40 MG/0.4 ML SYRINGE SC SCH (10:00)
[2022-03-30] MEDS: ZINC SULFATE 220mg CAP or TAB PO SCH (11:06)
[2022-03-30] MEDS: MULTIPLE VITAMIN TAB PO SCH (11:06)
[2022-03-30] MEDS: FAMOTIDINE (10MG/ML) 2ML VL IV SCH ×2 (11:06→22:00)
[2022-03-30 11:07] VITALS: BP 96/61
[2022-03-30] MEDS: ASCORBIC ACID 500 MG TAB PO SCH ×2 (11:07→22:00)
[2022-03-30] MEDS: HYDROcodone-ACET 5/325MG TAB PO PRN (11:07)
[2022-03-30 11:30] VITALS: BP 96/61
[2022-03-30 13:00] VITALS: BP 96/61
[2022-03-30 17:00] VITALS: BP 97/62
[2022-03-30 17:33] LABS: INR 1.07 (0.9-1.15); Partial Thromboplastin Time 36.7 sec (24.6-33.4)
[2022-03-30 22:17] VITALS: BP 92/60
[2022-03-31] VITALS (7 sets, daily range): BP systolic 92–100; BP diastolic 50–59
[2022-03-31] MEDS: HYDROcodone-ACET 5/325MG TAB PO PRN ×2 (00:19→13:30)
[2022-03-31] MEDS: CLINDAMYCIN 600MG IV 50 ML IV SCH ×3 (06:10→21:36)
[2022-03-31 06:22] LABS: Basophils # (auto) 0 10 ^3/uL (0-0.2); Basophils % (auto) 0.4 % (0.0-2.0); Eosinophils # (auto) 0.1 10 ^3/uL (0-0.8); Eosinophils % (auto) 1.9 % (0.0-7.0); Hematocrit 34.9 % (41.0-53.0); Hemoglobin 12.2 g/dL (13.5-17.5); Lymphocytes # (auto) 1.6 10 ^3/uL (0.4-5.4); Mean Corpuscular Hgb Conc. 35.1 g/dL (32.0-36.0); Mean Corpuscular Volume 88.4 fL (80.0-100.0); Monocytes # (auto) 0.5 10 ^3/uL (0-1.3); Neutrophils # (auto) 4.4 10 ^3/uL (1.6-8.6); Neutrophils % (auto) 66.7 % (37.0-80.0); Red Blood Cells 3.94 10^6/uL (4.5-5.90); Red Cell Distribution Width 13.1 % (11.8-14.3); White Blood Cell 6.6 10^3/uL (4.4-10.8)
[2022-03-31 06:40] LABS: Albumin 2.9 g/dL (3.4-5.0); Calcium 8.2 mg/dL (8.5-10.1); Potassium 3.6 mmol/L (3.5-5.1)
[2022-03-31 06:45] LABS: BUN/Creatinine Ratio 5.9; Bilirubin, Total 1.1 mg/dL (0.2-1.0); Total Protein 6.4 g/dL (6.4-8.2)
[2022-03-31] MEDS ORDERED: LIDOCAINE 2% (LOCAL ANESTH.) PF 5ml SDV ONE (07:23)
[2022-03-31] MEDS ORDERED: PROPOFOL 10 MG/ML 20 ML IV ONE (07:23)
[2022-03-31] MEDS ORDERED: HYDROmorphone HCL 2 MG/ML VL/or syr IV PRN (08:00)
[2022-03-31] MEDS ORDERED: ONDANSETRON HCL 4 MG/2 ML VIAL IV PRN (08:00)
[2022-03-31] MEDS: MULTIPLE VITAMIN TAB PO SCH (10:41)
[2022-03-31] MEDS: ASCORBIC ACID 500 MG TAB PO SCH ×2 (10:41→21:35)
[2022-03-31] MEDS: ZINC SULFATE 220mg CAP or TAB PO SCH (10:41)
[2022-03-31] MEDS: FAMOTIDINE (10MG/ML) 2ML VL IV SCH ×2 (10:42→21:35)
[2022-04-01 05:00] VITALS: BP_SYST 105; BP_DIAS 55; BP_DIAS 65
[2022-04-01] MEDS: CLINDAMYCIN 600MG IV 50 ML IV SCH ×4 (05:37→21:57)
[2022-04-01 09:00] VITALS: BP 95/60
[2022-04-01] MEDS: FAMOTIDINE (10MG/ML) 2ML VL IV SCH ×2 (11:05→21:44)
[2022-04-01] MEDS: ASCORBIC ACID 500 MG TAB PO SCH ×2 (11:06→21:58)
[2022-04-01] MEDS: HYDROcodone-ACET 5/325MG TAB PO PRN (11:06)
[2022-04-01] MEDS: MULTIPLE VITAMIN TAB PO SCH (11:06)
[2022-04-01] MEDS: ZINC SULFATE 220mg CAP or TAB PO SCH (11:06)
[2022-04-01 12:46] VITALS: BP 94/58
[2022-04-01] MEDS ORDERED: VANCOMYCIN 1GM/250ML 250 ML IV ONE (14:15)
[2022-04-01] MEDS ORDERED: VANCOMYCIN PER PHARMACY 0 MG IV SCH (14:15)
[2022-04-01 16:45] VITALS: BP 89/57
[2022-04-01] MEDS ORDERED: diphenhdrAMINE HCL 50 MG/1 ML VL IV ONE (16:45)
[2022-04-01 16:50] VITALS: BP 105/73
[2022-04-01] MEDS ORDERED: SODIUM CHLORIDE 0.9% 1,000 ML IV SCH (17:00)
[2022-04-01] MEDS ORDERED: DOCUSATE SOD 100 MG CAP PO ONE (20:45)
[2022-04-01] MEDS: LACTULOSE 20Gm/30ML SOLN PO SCH (21:59)
[2022-04-01 22:00] VITALS: BP 93/57
[2022-04-02] MEDS ORDERED: VANCOMYCIN 1GM/250ML 250 ML IV SCH (03:30)
[2022-04-02 05:00] VITALS: BP 94/51
[2022-04-02] MEDS: CLINDAMYCIN 600MG IV 50 ML IV SCH ×3 (05:07→22:33)
[2022-04-02 09:00] VITALS: BP 89/55
[2022-04-02] MEDS: FAMOTIDINE (10MG/ML) 2ML VL IV SCH ×2 (09:07→23:17)
[2022-04-02] MEDS: ASCORBIC ACID 500 MG TAB PO SCH ×2 (09:08→22:00)
[2022-04-02] MEDS: LACTULOSE 20Gm/30ML SOLN PO SCH ×2 (09:08→22:00)
[2022-04-02] MEDS: MULTIPLE VITAMIN TAB PO SCH (09:08)
[2022-04-02] MEDS: ZINC SULFATE 220mg CAP or TAB PO SCH (09:08)
[2022-04-02] MEDS ORDERED: DOCUSATE SOD 100 MG CAP PO SCH (10:00)
[2022-04-02] MEDS: HYDROcodone-ACET 5/325MG TAB PO PRN (11:00)
[2022-04-02 13:00] VITALS: BP 92/56
[2022-04-02 16:40] VITALS: BP 96/57
[2022-04-02] MEDS ORDERED: diphenhdrAMINE HCL 25 MG CAP PO ONE (21:00)
[2022-04-02] MEDS ORDERED: diphenhdrAMINE HCL 12.5 MG/5 ML UD PO ONE (21:30)
[2022-04-02 22:00] VITALS: BP 111/64
[2022-04-02] MEDS: DOCUSATE ORAL LIQUID 100 MG/10 ML UD PO SCH (22:00)
[2022-04-03 05:00] VITALS: BP 96/54
[2022-04-03] MEDS: CLINDAMYCIN 600MG IV 50 ML IV SCH ×3 (05:32→21:45)
[2022-04-03] MEDS: HYDROcodone-ACET 5/325MG TAB PO PRN ×3 (05:45→17:46)
[2022-04-03 09:00] VITALS: BP 105/61
[2022-04-03] MEDS: FAMOTIDINE (10MG/ML) 2ML VL IV SCH ×2 (09:29→21:45)
[2022-04-03] MEDS: ZINC SULFATE 220mg CAP or TAB PO SCH (09:30)
[2022-04-03] MEDS: MULTIPLE VITAMIN TAB PO SCH (09:30)
[2022-04-03] MEDS: ASCORBIC ACID 500 MG TAB PO SCH ×2 (09:30→21:46)
[2022-04-03] MEDS: LACTULOSE 20Gm/30ML SOLN PO SCH ×2 (09:31→21:45)
[2022-04-03] MEDS: DOCUSATE ORAL LIQUID 100 MG/10 ML UD PO SCH ×2 (09:31→21:45)
[2022-04-03 13:00] VITALS: BP 101/62
[2022-04-03 17:00] VITALS: BP 108/54
[2022-04-03 22:00] VITALS: BP 108/68
[2022-04-04 05:00] VITALS: BP 101/61
[2022-04-04] MEDS: CLINDAMYCIN 600MG IV 50 ML IV SCH (06:02)
[2022-04-04 08:56] VITALS: BP 102/63
[2022-04-04] MEDS: DOCUSATE ORAL LIQUID 100 MG/10 ML UD PO SCH (09:40)
[2022-04-04] MEDS: MULTIPLE VITAMIN TAB PO SCH (09:40)
[2022-04-04] MEDS: HYDROcodone-ACET 5/325MG TAB PO PRN (09:40)
[2022-04-04] MEDS: ZINC SULFATE 220mg CAP or TAB PO SCH (09:40)
[2022-04-04] MEDS: ASCORBIC ACID 500 MG TAB PO SCH (09:40)
[2022-04-04] MEDS: FAMOTIDINE (10MG/ML) 2ML VL IV SCH (09:40)
[2022-04-04] MEDS: LACTULOSE 20Gm/30ML SOLN PO SCH (09:40)
[2022-04-04] MEDS ORDERED: HYDR-4902 PO (10:17)
[2022-04-04] MEDS ORDERED: CLIN-203 PO (10:17)
[2022-04-04] MEDS ORDERED: LEVE500T32 PO (10:17)
[2022-04-04 13:00] VITALS: BP 112/68
[2022-04-04] MEDS ORDERED: CLINDAMYCIN 600MG IV 50 ML IV SCH (14:00)
== END 2022-04-04 15:40 | disposition home health service (06) | DRG 383 ==
LOC: ER 16:18 → TELE 03-30 00:42 → TELE-EAST 03-30 09:40
PROVIDERS: ADMIT Nurse Practitioner Family; ATTEND Family Medicine
PROC: 0JBH0ZZ Excision of Left Lower Arm Subcutaneous Tissue and Fascia, Open Approach (ICD-10-PCS; principal; 2022-03-31 07:28)
DX: L02.414 Cutaneous abscess of left upper limb (principal); E43 Unspecified severe protein-calorie malnutrition; L03.114 Cellulitis of left upper limb; B95.62 Methicillin resistant Staphylococcus aureus infection as the cause of diseases classified elsewhere; M25.422 Effusion, left elbow; Z20.822 Contact with and (suspected) exposure to COVID-19; G40.909 Epilepsy, unspecified, not intractable, without status epilepticus; G80.9 Cerebral palsy, unspecified; M70.22 Olecranon bursitis, left elbow; F79 Unspecified intellectual disabilities; Z74.01 Bed confinement status; Z68.1 Body mass index [BMI] 19.9 or less, adult; Z88.1 Allergy status to other antibiotic agents; Z88.0 Allergy status to penicillin; Z82.49 Family history of ischemic heart disease and other diseases of the circulatory system; Z79.899 Other long term (current) drug therapy; Z83.3 Family history of diabetes mellitus
CPT/HCPCS: 36415; 73080; 73200; 80053; 80202; 81001; 82542; 83605; 85025; 85610; 85730; 86141; 87040; 87070; 87075; 87077; 87186; 87205; 92610; 96361; 96365; 96366; 96368; 96372; 96375; G0378; J2001; J2405; J2704; J3490; J7060

== ENCOUNTER 2023-10-20 10:33 | Inpatient (IN) | payer MEDICAID ==
[~2023-10-20] VITALS: Ht 170.2 cm; Wt 48.3 kg
[~2023-10-20 10:33] MED LIST changes: +CLIN-203 PO; +IBUP-1456 PO; -IBUP800T27 PO; -LEVE500T32 PO; +LEVE500T40 PO
[2023-10-20 11:00] VITALS: PULSE 88; RESP 16; O2SAT 96
[2023-10-20] MEDS: SODIUM CHLORIDE 0.9% 1,000 ML IV ONE (12:07)
[2023-10-20 12:09] LABS: Urine Bacteria None Seen /hpf (None Seen); Urine WBC None Seen /hpf (0 - 3)
[2023-10-20] MEDS: MORPHINE SULFATE INJ 2 MG/ml SYRG IV ONE (12:13)
[2023-10-20] MEDS: ONDANSETRON HCL 4 MG/2 ML VIAL IV ONE (12:13)
[2023-10-20 12:22] LABS: Urine Blood Negative /uL (Negative); Urine Clarity Clear (Clear); Urine Protein, UAD Negative (Negative); Urine Specific Gravity 1.002 (1.001-1.035); Urine Urobilinogen Normal (Negative)
[2023-10-20 12:22] LABS: Basophils # (auto) 0 10 ^3/uL (0-0.2); Basophils % (auto) 0.7 % (0.0-2.0); Eosinophils # (auto) 0.1 10 ^3/uL (0-0.8); Eosinophils % (auto) 1.8 % (0.0-7.0); Hematocrit 43.9 % (41.0-53.0); Lymphocytes # (auto) 1.2 10 ^3/uL (0.4-5.4); Lymphocytes % (auto) 28.6 % (10.0-50.0); Mean Corpuscular Hemoglobin 31.1 pg (28.0-32.0); Mean Corpuscular Hgb Conc. 34.1 g/dL (32.0-36.0); Mean Corpuscular Volume 91.2 fL (80.0-100.0); Monocytes # (auto) 0.2 10 ^3/uL (0-1.3); Monocytes % (auto) 5.7 % (0.0-12.0); Neutrophils # (auto) 2.7 10 ^3/uL (1.6-8.6); Neutrophils % (auto) 63.2 % (37.0-80.0); Nucleated Red Blood Cells % 0.1 %; Red Blood Cells 4.82 10^6/uL (4.5-5.90); Red Cell Distribution Width 12.6 % (11.8-14.3); White Blood Cell 4.3 10^3/uL (4.4-10.8)
[2023-10-20 12:26] LABS: Urine Color Light Yellow (Yellow)
[2023-10-20] MEDS: KETOROLAC TROMETH 30 MG/ML 1ML VIAL IV ONE (12:43)
[2023-10-20 12:48] LABS: Chloride 107 mmol/L (98-107); Sodium 141 mmol/L (136-145)
[2023-10-20 12:49] LABS: Anion Gap 3 (5-15); Carbon Dioxide 31 mmol/L (20-30)
[2023-10-20 12:54] LABS: BUN/Creatinine Ratio 6.9 (10.0-20.0); Blood Urea Nitrogen < 5 mg/dL (9-23); Glucose 97 mg/dL (74-106)
[2023-10-20] MEDS ORDERED: ONDANSETRON HCL 4 MG/2 ML VIAL IV PRN (13:30)
[2023-10-20] MEDS ORDERED: DEUT6TAB PO (15:25)
[2023-10-20] MEDS ORDERED: DEUT24TA PO (15:25)
[2023-10-20 19:00] VITALS: PULSE 88; RESP 16; O2SAT 96
[2023-10-20] MEDS ORDERED: levETIRAcetam 500 MG TAB PO SCH (22:00)
[2023-10-20] MEDS: levETIRAcetam 500 MG TAB PO SCH (22:02)
[2023-10-20 22:40] VITALS: BP 112/67; PULSE 70; RESP 18; TEMP 98.2; O2SAT 97
[2023-10-20 23:34] VITALS: PULSE 70; RESP 18; O2SAT 97
[2023-10-20 23:37] VITALS: BP 112/67; PULSE 70; RESP 18; TEMP 98.2; O2SAT 97
[2023-10-21] VITALS (8 sets, daily range): BP systolic 92–107; BP diastolic 52–70; PULSE 54–81; RESP 17–20; TEMP 97.4–98.6; O2SAT 94–98
[2023-10-21] MEDS ORDERED: LEVE500T40 PO (00:44)
[2023-10-21 05:49] LABS: Basophils # (auto) 0 10 ^3/uL (0-0.2); Eosinophils # (auto) 0.1 10 ^3/uL (0-0.8); Eosinophils % (auto) 2.7 % (0.0-7.0); Hematocrit 40.8 % (41.0-53.0); Lymphocytes # (auto) 2.2 10 ^3/uL (0.4-5.4); Lymphocytes % (auto) 44.4 % (10.0-50.0); Mean Corpuscular Hemoglobin 31.1 pg (28.0-32.0); Mean Corpuscular Hgb Conc. 34.2 g/dL (32.0-36.0); Monocytes # (auto) 0.3 10 ^3/uL (0-1.3); Monocytes % (auto) 6.8 % (0.0-12.0); Neutrophils # (auto) 2.2 10 ^3/uL (1.6-8.6); Neutrophils % (auto) 45.1 % (37.0-80.0); Nucleated Red Blood Cells % 0.1 %; Red Blood Cells 4.48 10^6/uL (4.5-5.90); Red Cell Distribution Width 12.8 % (11.8-14.3); White Blood Cell 4.9 10^3/uL (4.4-10.8)
[2023-10-21 06:05] LABS: Alanine Aminotransferase 18 U/L (7-40); Albumin 3.8 g/dL (3.2-4.8); Alkaline Phosphatase 59 U/L (46-116); Anion Gap 4 (5-15); Aspartate Aminotransferase 10 U/L (13-40); Bilirubin, Total 0.7 mg/dL (0.2-1.0); Calcium 9.3 mg/dL (8.5-10.1); Carbon Dioxide 27 mmol/L (20-30); Chloride 111 mmol/L (98-107); Glucose 83 mg/dL (74-106); Potassium 3.8 mmol/L (3.5-5.1); Sodium 142 mmol/L (136-145); Total Protein 6.2 g/dL (5.7-8.2)
[2023-10-21 06:22] LABS: BUN/Creatinine Ratio 8.5 (10.0-20.0); Blood Urea Nitrogen < 5 mg/dL (9-23)
[2023-10-21] MEDS ORDERED: VALBENAZINE TOSYLATE 80 MG PO SCH (10:00)
[2023-10-21] MEDS: levETIRAcetam 500 MG TAB PO SCH (20:30)
[2023-10-21] MEDS: DEUTETRABENAZINE 6 MG PO SCH (20:54)
[2023-10-21] MEDS: DEUTETRABENAZINE 24 MG PO SCH (20:55)
[2023-10-22] VITALS (8 sets, daily range): BP systolic 88–110; BP diastolic 58–71; PULSE 61–84; RESP 16–18; TEMP 97.2–98.6; O2SAT 95–96
[2023-10-22] MEDS: LORazepam 2MG/ML-1ML VIAL IV PRN (14:54)
[2023-10-22] MEDS: DEUTETRABENAZINE 24 MG PO SCH (20:23)
[2023-10-22] MEDS: DEUTETRABENAZINE 6 MG PO SCH (20:24)
[2023-10-23] VITALS (7 sets, daily range): BP systolic 96–109; BP diastolic 53–75; PULSE 63–83; RESP 12–19; TEMP 96.2–98.2; O2SAT 94–99
[2023-10-23] MEDS ORDERED: ASPI1TAB20 PO (11:28)
== END 2023-10-23 12:25 | disposition home or self-care (01) | DRG 47 ==
LOC: ER 10:38 → TELE 13:37 → ER 13:37 → TELE-CENTR 22:40
PROVIDERS: ADMIT Internal Medicine Geriatric Medicine; ATTEND Internal Medicine Geriatric Medicine
DX: G45.9 Transient cerebral ischemic attack, unspecified (principal); R64 Cachexia; F17.200 Nicotine dependence, unspecified, uncomplicated; G80.9 Cerebral palsy, unspecified; F79 Unspecified intellectual disabilities; G40.909 Epilepsy, unspecified, not intractable, without status epilepticus; Z88.0 Allergy status to penicillin; Z83.3 Family history of diabetes mellitus; Z79.899 Other long term (current) drug therapy; Z82.49 Family history of ischemic heart disease and other diseases of the circulatory system; Z74.01 Bed confinement status; R63.6 Underweight; Z68.1 Body mass index [BMI] 19.9 or less, adult
CPT/HCPCS: 36415; 70450; 70551; 80048; 80053; 81001; 85025; 93306; 93886; 96361; 96374; G0378; J1885

== ENCOUNTER 2024-06-23 20:09 | Inpatient (IN) | payer MEDICAID ==
[~2024-06-23] VITALS: Ht 170.2 cm; Wt 60.5 kg
[~2024-06-23 20:09] MED LIST changes: +ASPI1TAB20 PO; -CLIN-203 PO; +DEUT24TA PO; +DEUT6TAB PO; -VALB80CA PO; -[UNRECOGNIZED DRUG - CODE] PO
--- NOTE | 2024-06-23 22:28 | ED.PDOC ---
Back pain HPI HPI Comments HPI: HPI: Poor Historian. History obtained from the mother at bedside. 44y M who presents to the ED for chief complaint of fall injury. Pt has the following course of events: - pt has history of cerebral palsy and seizure anxiety and pt mother is cross tie turner - pt mother today at approx 630 PM states, pt stood up from sitting position in wheelchair and states he got lightheadedness and dizziness and fell to the floor. - pt mother heard noise and went to check on pt and states pt suffered trauma on R side of forehead and noted R sided chest wall pain but no noted loss of co nsciousness and brought to the ED for further evaluation - pt in the ED, has noted R sided chest wall pain, R upper rib cage pain and R facial pain, and R zygomatic supervision laceration Patient also states he has been having increased seizure episodes despite being compliant with his Keppra. Past medical history: cerebral palsy, seizures, anxiety Past surgical history: unknown Social history: denies tobacco use, denies ETOH use, denies drug use Medications: unknown Allergies: penicillins,ampicillin REVIEW OF SYSTEMS: CONSTITUTIONAL: Denies acute: fever, diaphoresis, chills, generalized weakness. HEAD: Denies acute: headache, photophobia Eyes: Denies acute: Double vision, vision loss, eye pain, eye discharge. EARS: Denies acute: tinnitus, hearing loss, ear discharge, ear pain, THROAT: Denies acute: sore throat, swelling, difficulty swallowing , pain with s wallowing, change in voice. NECK: Denies acute: neck pain, neck swelling, stiff neck. HEART: Denies acute : chest pain, palpitations, LUNGS: Denies acute: SOB, wheezing, cough, hemoptysis ABDOMEN: Denies acute: abdominal pain, Nausea, Vomiting, diarrhea, melena , hematemesis, hematochezia SKIN: Denies acute: rash, redness, lesions, itchiness. EXTREMITIES: Denies acute: calf pain, numbness, tingling, weakness, denies pain in extremity. Denies acute: Low back pain. Neuro: Denies acute: focal neurological deficit, motor or sensory focal neurological deficit, tremors, seizure like activity, confusion, dizziness, change in mental status, loss of bowel or bladder function, cauda equina like symptoms. : Denies acute: dysuria, hematuria, flank pain, increase in urinary frequency. PSYCH: Denies acute: hallucination, suicidal ideation, homicidal ideation. PHYSICAL EXAM: General: no acute distress, awake and alert. Head: normocephalic, atraumatic. Noted right facial swelling and periorbital b ruise and right zygomatic superficial laceration not actively bleeding. Neck: supple, trachea is midline, no swelling. Cervical spine: Palpation of the posterior midline of the cervical spine reveals no focal swelling, erythema, focal tenderness to palpation. Patient has normal range of motion. Throat: Normal phonation. Eyes:, no erythema, no purulent discharge, no proptosis, no icterus. Heart: regular rate, regular rhythm, no significant murmur appreciated. Lungs: no apparent respiratory distress, No wheezing, no rhonchi, no crackles. No stridors Clear to auscultation bilaterally. Abdomen: non tender to palpation, non distended, soft, no guarding, no rebound, + bowel sounds. Neuro: Awake, Alert, oriented to name, self, situation, follows commands at baseline per mother. Skin: no petechia, no purpura, no cyanosis, non-pale, not jaundice. Lower extremities: --no - Pitting edema no deformity, no focal swelling, no calf TTP. Makes eye contact. moves all four extremities. Face: no apparent facial droop. PERRLA, EOM-I No nuchal rigidity, Kernig's sign, Brudzinski's sign, no meningeal signs. Chief Complaint: Fall Injury Time Seen by MD: 22:27 Primary Care Provider: Eleni Tang Reviewed Notes: Nurses Notes, Medications, Allergies Allergies: Coded Allergies: Ampicillin (Verified Allergy, Unknown, 08/14/14) Penicillins (Verified Allergy, Unknown, 08/14/14) Home Meds Active Scripts Aspirin (Aspir-81) 81 Mg Tab, 1 TAB PO DAILY, #90 TAB 3 Refills Prov:MIR GARCIA 10/23/23 Hydrocodone-Acetaminophen (Hydrocodone Bitartrate/AC 5-325 mg) 1 Tab Tab, 1 TAB PO TID PRN, #30 TAB Prov:PIOTR TOUSSAINT MD 04/04/22 Reported Medications Levetiracetam (Keppra) 500 Mg Tab, 500 MG PO DAILY for 30 Days, MG 10/21/23 Deutetrabenazine (Austedo Xr) 24 Mg Tab, 24 MG PO DAILY, TAB 10/20/23 Deutetrabenazine (Austedo) 6 Mg Tab, 6 MG PO DAILY, TAB 10/20/23 Diphenhydramine Hcl (Benadryl Allergy) 25 Mg Cap, 25 MG PO PRN, CAP 06/19/20 Ibuprofen (Ibuprofen) 800 Mg Tab, 600 MG PO Q6HPRN PRN for MILD PAIN (1-3 PAIN SCALE), MG 02/13/20 Acetaminophen (Tylenol Extra Strength) 500 Mg Tab, 500 MG PO PRN PRN for PAIN, TAB 02/12/20 Information Source: Patient, Relative (Mother) Mode of Arrival: Wheelchair Brought in by: mother Past Medical History PAST MEDICAL HISTORY: Seizures Surgical History: Denies all surgeries Family History Family History: Family hx of DM, Family hx of heart jaida, Family hx of HTN Social History Smoker: Non-Smoker Alcohol: Denies ETOH Use Drugs: Denies Drug Use Lives In: Home Was a procedure done? Was a procedure done?: No Back Pain Differential Dx Differential Diagnosis: Fracture, Musculoskeletal Pain, Other (Dislocation, intracranial injury, neurovascular injury, hematoma, orbital fracture, facial fracture.) X-Ray, Labs, Meds, VS Vital Signs Date Time Temp Pulse Resp B/P (MAP) Pulse Ox O2 Delivery O2 Flow Rate FiO2 06/24/24 00:43 99.3 116 20 116/77 (90) 94 99.3 06/23/24 21:00 97.8 112 14 128/74 (92) 94 Current Medications Medications (Trade) Dose Ordered Sig/Karine Route Start Time Stop Time Status Last Admin Clindamycin Phosphate 50 ml @ 50 mls/hr ONCE ONCE IV 06/24/24 00:00 06/24/24 00:59 DC 06/24/24 01:56 Lorazepam (Ativan Inj) 1 mg ONCE ONCE IV 06/24/24 00:30 06/24/24 00:31 DC 06/24/24 01:56 Time of 1ST Reevaluation: 00:22 (The case was discussed with the higher level of care [facility] team (HPI, physical exam, labs and diagnostic tests that were available at the time of disposition, ED course, treatment plan) on the phone. The ER physician Dr. Kilgore says that we typically send those patients home. No need for transfer. He recommends outpatient follow up. No further recommendations. I will also speak with the [facility] surgeon on-call. ) Reevaluation 1ST: Unchanged Patient Education/Counseling: Other (pt has history of cerebral palsy) Family Education/Counseling: Diagnosis, Treatment Comments Patient presented with the above HPI.----fall and facial injury--workup was initiated. patient was found with the above mentioned diagnosis. the following medications were ordered: please refer to order lists of meds and tests obtained by myself Dr. Farnsworth. Patient ED course and VS have been stabilized. Patient has been reassessed in the ED and remained in a stable condition. Pertinent incidental findings were discussed with the patient and/or family. Patient/family voices understanding and is agreeable with plan. Patient has been observed in the ED adequate length of time to insure improvement/stability. Escalation of care considered: Consideration of escalation to observation or admission Patient was ADMITTED to the medicine team for further evaluation and treatment of their presentation. Case was discussed with [facility] for higher level of care for transfer the patient given his CT scan findings. They said they recommend outpatient follow up no need to transfer her admit the patient for this purpose. While patient was here in the ED although he is on Keppra and t ook his evening dose here in the ED he continued to have seizure episodes per mother. Patient was given Ativan and Keppra here in the ED in addition. All the reports of any imaging studies that were ordered by myself were reviewed by myself. Departure 1 Departure Time of Disposition: 00:24 Impression: Primary Impression: Maxillary sinus fracture Additional Impressions: Closed head injury Fall Superficial laceration of face Seizure Contusion of face Disposition: ADMITTED INPATIENT Admit to: Tele Condition: Guarded Discharged With: Self, Relative (Mother) Critical Care Note Critical Care Time?: Yes (35 min-critical care time only) I personally scribed for TRISHA FARNSWORTH DO ([email or web address]) on 06/23/24 at 22:28. Electronically submitted by Lyle CLARK). TRISHA FARNSWORTH DO Jun 23, 2024 22:28
--- NOTE | 2024-06-23 22:34 | DVH ---
EXAMINATION: XY R RIB XRAY INDICATION: fall COMPARISON: None TECHNIQUE: Frontal view of the chest and 4 views of the right ribs history FINDINGS: No focal consolidation, pleural effusion or significant pneumothorax. Normal cardiomediastinal silhou ette. No displaced right rib fracture. IMPRESSION: No acute cardiopulmonary disease. No displaced right rib fracture.
--- NOTE | 2024-06-23 22:58 | DVH ---
HISTORY: fall injury TECHNIQUE: Nonenhanced axial images through the facial bones with coronal and sagittal MPR. Radiation Dose Information: CT Dose: CTDI volume is 60.71 mGy. Dose-length product is 2680.65 mGy*cm FINDINGS: Mandible: Limited evaluation due to involuntary movements. No gross fracture visualized. Maxilla: Indeterminate because of involuntary motion. Pterygoid plates: Intact Zygomatic processes: Fracture is indeterminate because of involuntary motion. Zygomatic arches: In determinate because of involuntary motion Orbits: Preseptal air in the right orbit. No soft tissue swelling or air in the post septal portion of the right orbit. Sinuses: Air-fluid level right maxillary sinus Facial swelling: Soft tissue swelling right side of the face. Air in the subcutaneous tissues on the right side of the face. This may be due to fracture in the lateral wall of the right maxillary sinus IMPRESSION: 1. Fracture lateral wall right maxillary sinus with air-fluid level in the right maxillary sinus. 2. Soft tissue swelling in the right side of the face with air in the subcutaneous tissues. Radiation optimization: All CT scans at this facility use at least one of these dose optimization juve hniques: automated exposure control mA and/or kV adjustment per patient size (includes targeted exam s where dose is matched to clinical indication) or iterative reconstruction.
[2024-06-24] VITALS (7 sets, daily range): BP systolic 92–100; BP diastolic 55–69; PULSE 70–115; RESP 17–20; TEMP 97.8–98.5; O2SAT 95–97
[2024-06-24] MEDS: levETIRAcetam 500 mg/100ml 100 ML IV ONE (00:30)
[2024-06-24] MEDS ORDERED: ONDANSETRON HCL 4 MG/2 ML VIAL IV PRN (01:00)
[2024-06-24] MEDS ORDERED: LORazepam 2MG/ML-1ML VIAL IV PRN (01:00)
[2024-06-24 01:54] LABS: Basophils # (auto) 0.1 10 ^3/uL (0-0.2); Basophils % (auto) 0.6 % (0.0-2.0); Eosinophils # (auto) 0 10 ^3/uL (0-0.8); Eosinophils % (auto) 0.3 % (0.0-7.0); Hematocrit 45.5 % (41.0-53.0); Hemoglobin 15.8 g/dL (13.5-17.5); Lymphocytes # (auto) 1.5 10 ^3/uL (0.4-5.4); Lymphocytes % (auto) 15.9 % (10.0-50.0); Mean Corpuscular Hemoglobin 31.5 pg (28.0-32.0); Mean Corpuscular Hgb Conc. 34.7 g/dL (32.0-36.0); Mean Corpuscular Volume 90.8 fL (80.0-100.0); Monocytes # (auto) 0.6 10 ^3/uL (0-1.3); Monocytes % (auto) 5.8 % (0.0-12.0); Neutrophils # (auto) 7.4 10 ^3/uL (1.6-8.6); Neutrophils % (auto) 77.4 % (37.0-80.0); Nucleated Red Blood Cells % 0.1 %; Platelet Count (auto) 186 10^3/uL (140-450); Red Blood Cells 5.02 10^6/uL (4.5-5.90); Red Cell Distribution Width 12.3 % (11.8-14.3); White Blood Cell 9.5 10^3/uL (4.4-10.8)
[2024-06-24] MEDS: LORazepam 2MG/ML-1ML VIAL IV ONE (01:56)
[2024-06-24] MEDS: CLINDAMYCIN 600MG IV 50 ML IV ONE (01:56)
[2024-06-24 02:15] LABS: Alanine Aminotransferase 33 U/L (7-40); Albumin 4.6 g/dL (3.2-4.8); Alkaline Phosphatase 70 U/L (46-116); Anion Gap 11 (5-15); Aspartate Aminotransferase 27 U/L (13-40); Calcium 10.2 mg/dL (8.7-10.4); Carbon Dioxide 26 mmol/L (20-31); Chloride 104 mmol/L (98-107); Glucose 107 mg/dL (74-106); Potassium 3.7 mmol/L (3.5-5.1); Sodium 141 mmol/L (136-145)
[2024-06-24 02:16] LABS: BUN/Creatinine Ratio 7.8 (10.0-20.0); Bilirubin, Total 0.7 mg/dL (0.2-1.0); Blood Urea Nitrogen < 5 mg/dL (9-23); Total Protein 7.4 g/dL (5.7-8.2)
[2024-06-24] MEDS: HYDROcodone-ACET 5/325MG TAB PO PRN (03:51)
--- NOTE | 2024-06-24 05:19 | DVHHP2 ---
History of Present Illness Reason for Visit: Possible seizure History of Present Illness 44-year-old male presents for evaluation of possible seizure. Patient's mother heard a loud stump and found the patient on the floor possibly having a seizure. Patient was brought in for evaluation. There was noted facial trauma to the right side. Past Medical History Seizures and cerebral palsy Past Surgical History None Family History Noncontributory Smoke: No ALCOHOL: none Drugs: None Lives: with Family Review of Systems Review of Systems Review of systems are currently negative otherwise dressing HPI. Allergies: Coded Allergies: Ampicillin (Verified Allergy, Unknown, 08/14/14) Penicillins (Verified Allergy, Unknown, 08/14/14) Medications Current Medications Medications Dose Ordered Sig/Karine Route Start Time Stop Time Status Last Admin Dose Admin Levetiracetam 500 mg BID PO 06/24/24 10:00 Patient Own Medication 24 mg DAILY PO 06/24/24 10:00 UNV Lorazepam 1 mg Q5MINP PRN IV 06/24/24 01:00 Acetaminophen/ Hydrocodone Bitart 1 tab Q4HP PRN PO 06/24/24 01:00 06/24/24 03:51 1 TAB Ondansetron HCl 4 mg Q4HP PRN IV 06/24/24 01:00 Acetaminophen 650 mg Q6HP PRN PO 06/24/24 01:00 Exam Vital Signs Vital Signs Date Time Temp Pulse Resp B/P (MAP) Pulse Ox O2 Delivery O2 Flow Rate FiO2 06/24/24 02:00 115 20 95 Room Air* 0 21 06/24/24 00:43 99.3 116/77 (90) 99.3 Exam Gen: 44-year-old male in mild distress Skin: Warm, dry, normal color and texture, no rash. HEENT: Noted right facial swelling with right periorbital bruising, superficial laceration , mucous membranes moist and pink. Neck: Cervical and supraclavicular nodes normal without enlargement, trachea is midline, thyroid gland is normal without masses. Pulmonary: Clear to auscultation and percussion bilaterally. Cardiac: Regular rate and rhythm. No murmur Abdomen: Soft, nontender, nondistended, bowel sounds present all 4 quadrants, no guarding, no rigidity, no organomegaly. Extremities: No cyanosis, clubbing, no edema Neuro: Cranial nerves II through XII grossly intact, normal affect and speech, no focal motor deficits. Labs/Xrays ORDERING PHYSICIAN: TRISHA FARNSWORTH DO PROCEDURE(s): FAC2C - MAXILLOFACIAL WITHOUT REASON: fall injury ORDER NUMBER(s): [id number], ACCESSION NUMBER(s): [id number] HISTORY: fall injury TECHNIQUE: Nonenhanced axial images through the facial bones with coronal and sagittal MPR. Radiation Dose Information: CT Dose: CTDI volume is 60.71 mGy. Dose-length product is 2680.65 mGy*cm FINDINGS: Mandible: Limited evaluation due to involuntary movements. No gross fracture visualized. Maxilla: Indeterminate because of involuntary motion. Pterygoid plates: Intact Zygomatic processes: Fracture is indeterminate because of involuntary motion. Zygomatic arches: Indeterminate because of involuntary motion Orbits: Preseptal air in the right orbit. No soft tissue swelling or air in the post septal portion of the right orbit. Sinuses: Air-fluid level right maxillary sinus Facial swelling: Soft tissue swelling right side of the face. Air in the subcutaneous tissues on the right side of the face. This may be due to fracture in the lateral wall of the right maxillary sinus IMPRESSION: 1. Fracture lateral wall right maxillary sinus with air-fluid level in the right maxillary sinus. 2. Soft tissue swelling in the right side of the face with air in the subcutaneous tissues. Radiation optimization: All CT scans at this facility use at least one of these dose optimization techniques: automated exposure control mA and/or kV adjustment per patient size (includes targeted exams where dose is matched to clinical indication) or iterative reconstruction. ATED BY: HEVER ROSE Jr., DO ORDERING PHYSICIAN: TRISHA FARNSWORTH DO PROCEDURE(s): RRIBS - R RIB XRAY REASON: fall ORDER NUMBER(s): [id number], ACCESSION NUMBER(s): [id number] EXAMINATION: XY R RIB XRAY INDICATION: fall COMPARISON: None TECHNIQUE: Frontal view of the chest and 4 views of the right ribs history FINDINGS: No focal consolidation, pleural effusion or significant pneumothorax. Normal cardiomediastinal silhouette. No displaced right rib fracture. IMPRESSION: No acute cardiopulmonary disease. No displaced right rib fracture. Labs Test 06/24/24 01:23 Range/Units White Blood Count 9.5 4.4-10.8 10^3/uL Red Blood Count 5.02 4.5-5.90 10^6/uL Hemoglobin 15.8 13.5-17.5 g/dL Hematocrit 45.5 41.0-53.0 % Mean Corpuscular Volume 90.8 80.0-100.0 fL Mean Corpuscular Hemoglobin 31.5 28.0-32.0 pg Mean Corpuscular Hemoglobin Concent 34.7 32.0-36.0 g/dL Red Cell Distribution Width 12.3 11.8-14.3 % Platelet Count 186 140-450 10^3/uL Mean Platelet Volume 10.0 6.9-10.8 fL Neutrophils (%) (Auto) 77.4 37.0-80.0 % Lymphocytes (%) (Auto) 15.9 10.0-50.0 % Monocytes (%) (Auto) 5.8 0.0-12.0 % Eosinophils (%) (Auto) 0.3 0.0-7.0 % Basophils (%) (Auto) 0.6 0.0-2.0 % Neutrophils # (Auto) 7.4 1.6-8.6 10 ^3/uL Lymphocytes # (Auto) 1.5 0.4-5.4 10 ^3/uL Monocytes # (Auto) 0.6 0-1.3 10 ^3/uL Eosinophils # (Auto) 0 0-0.8 10 ^3/uL Basophils # (Auto) 0.1 0-0.2 10 ^3/uL Nucleated Red Blood Cells 0.1 % Sodium Level 141 136-145 mmol/L Potassium Level 3.7 3.5-5.1 mmol/L Chloride Level 104 98-107 mmol/L Carbon Dioxide Level 26 20-31 mmol/L Anion Gap 11 5-15 Blood Urea Nitrogen < 5 L 9-23 mg/dL Creatinine 0.64 L 0.700-1.30 mg/dL Glomerular Filtration Rate Calc 118 >90 mL/min BUN/Creatinine Ratio 7.8 L 10.0-20.0 Serum Glucose 107 H 74-106 mg/dL Calcium Level 10.2 8.7-10.4 mg/dL Total Bilirubin 0.7 0.2-1.0 mg/dL Aspartate Amino Transferase (AST) 27 13-40 U/L Alanine Aminotransferase (ALT) 33 7-40 U/L Alkaline Phosphatase 70 46-116 U/L Total Protein 7.4 5.7-8.2 g/dL Albumin 4.6 3.2-4.8 g/dL Assessment/Plan Assessment/Plan Assessment Breakthrough seizure Cerebral palsy Right maxillary sinus fracture Plan Admit the patient to [facility] to the hospitalist Nephrology consultation Seizure precautions in place ER provider Dr. Farnsworth spoke to ER provider in [facility] for possible transfer for maxillofacial evaluation. He was notified that the patient can be seen as an outpatient and does not need to be transferred. Pain management Resume home medications Continue treatment per orders. Plan discussed with: Patient My Orders Orders - JEANIE FIGUEROA Procedure Category Date Status Time Levetiracetam Tablet PHA 06/24/24 In Process (Keppra Tablet) 10:00 (Nf) Austedo Xr PHA 06/24/24 Pending 10:00 Seizure Precautions AVA 06/24/[address] 00:47 Lorazepam 2mg/Ml Inj PHA 06/24/24 In Process (Ativan Inj) 01:00 * Neurology Consult CONS 06/24/24 Transmitted 00:47 Basic Metabolic Panel LAB 06/25/24 Verified 04:00 Admit ADMIT 06/24/24 Transmitted 00:47 Hydrocodone-Acet PHA 06/24/24 In Process 5/325mg Tab ([place] 01:00 Ondansetron Hcl PHA 06/24/24 In Process (Zofran) 01:00 Condition: Stable AVA 06/24/24 In Process 00:47 Acetaminophen Tablet PHA 06/24/24 In Process (Tylenol Tablet) 01:00 Bedrest With Bathroom AVA 06/24/24 In Process Privileg 00:47 Regular Diet DIET 06/24/24 Transmitted Breakfast Date of Service: Jun 24, 2024 Billing Provider: JEANIE FIGUEROA Common Visit Codes: [id number] INP/OBS CARE (MOD) JEANIE FIGUEROA Jun 24, 2024 05:18
[2024-06-24] MEDS ORDERED: LORA-655 PO (05:57)
--- NOTE | 2024-06-24 08:40 | DVH ---
CHEST RADIOGRAPH Indication: rule out aspiration Technique: Single frontal view of the chest was obtained COMPARISON: CHEST PORTABLE on DOS: 02/15/20, CHEST PORTABLE on DOS: 02/14/20 FINDINGS: Lines and Tubes: None Lungs: Clear Pleura: No effusion. No pneumothorax. Cardiomediastinal contours: Unremarkable Bones: Unremarkable IMPRESSION: No acute disease.
[2024-06-24] MEDS: levETIRAcetam 500 MG TAB PO SCH (10:21)
[2024-06-24 15:56] LABS: Urine Bacteria None Seen /hpf (None Seen)
[2024-06-24 16:10] LABS: Urine Amorphous Crystal FEW /hpf (None Seen); Urine Blood Negative /uL (Negative); Urine Clarity Clear (Clear); Urine Color Light-Yellow (Yellow); Urine Protein, UAD Negative (Negative); Urine Specific Gravity 1.006 (1.001-1.035); Urine Squamous Epithelial Cell None Seen /hpf (<5); Urine Urobilinogen Normal (Negative)
[2024-06-24 16:13] LABS: Opiate Scree,Urine Neg (NEGATIVE)
[2024-06-24 16:16] LABS: Urine WBC < 1 /HPF (0-3)
[2024-06-24 16:17] LABS: Amphetamine Screen, Urine Neg (NEGATIVE); Barbiturate Scree,Urine Neg (NEGATIVE); Benzodiazephine Screen, Urine Neg (NEGATIVE); Cannabinoid Screen, Urine Neg (NEGATIVE); Cocaine Screen, Urine Neg (NEGATIVE); Phencyclidine Screen, Urine Neg (NEGATIVE)
--- NOTE | 2024-06-24 16:23 | DVHPNRES ---
Progress Note Date Seen: Jun 24, 2024 Resident Creating Document: DRAGAN ALBRECHT RESIDENT Has the PT tested + for MRSA If YES, has PT been informed?: No Medical Necessity Reason Pt with a Central, PICC or Fol: No Medical Necessity Reason Seizure activity Subjective Review of Systems This is a 44-year-old male with a past medical history of cerebral palsy, bowel resection in childhood, and seizure activities who presented to the ED via EMS after a seizure-like activity at home. Patient is currently communicates via sign language he understands but communicate via sign language however information was mainly from the mother. According to the mother heard a loud stump and found the patient on the floor with his extremities stretched out in a seizing position. Patient also hit his head on the floor his right side on the floor. He denied any recent nausea vomiting in the child, denied any fevers changes in temperature or changes from his normal baseline activities. Of note the patient does take Keppra daily 500 mg b.i.d. and he was on Austedo for muscle spasm for two years without improvement. During my communication with patient and mother, patient did express pain. Maxilofacial CT showed Fracture lateral wall right maxillary sinus with air-fluid level in the right maxillary sinus.Soft tissue swelling in the right side of the face with air in the subcutaneous tissues. Chest and Rib x-ray are negative. Constitutional: Denies fever no chills no feeling of malaise, facial pain HEENT: Denies headache, ear pain, ear discharges, conjunctivitis, nasal discharge throat pain Cardiovascular: Denies chest pain, palpitation, orthopnea, PND, or pedal edema Respiratory: Denies shortness of breath, cough cough, sputum production, hemoptysis, GI: Denies abdominal pain, nausea, vomiting, diarrhea, hematemesis, hematochezia, : Denies frequency, urgency, hematuria, Endocrine: Denies unintentional weight gain or weight loss, feeling of hot flashes, Juan: Denies easy bruising, bleeding disorders, epistaxis Musculoskeletal: Denies joint pains, muscle aches Psych: No evidence of depression, gini, suicidal ideation Objective vital signs Vital Sign Date Time Temp Pulse Resp B/P (MAP) Pulse Ox O2 Delivery O2 Flow Rate FiO2 06/24/24 12:56 97.8 86 20 100/67 (78) 97 97.8 06/24/24 08:00 Room Air* 0 21 Total Intake and Output 06/23/24 06/23/24 06/24/24 15:00 23:00 07:00 Intake Total 50 ml Output Total 0 ml Balance 50 ml medications Current Medications Medications Dose Ordered Sig/Karine Route Start Time Stop Time Status Last Admin Dose Admin Levetiracetam 500 mg BID PO 06/24/24 10:00 06/24/24 10:21 500 MG Patient Own Medication 24 mg DAILY PO 06/24/24 10:00 Lorazepam 1 mg Q5MINP PRN IV 06/24/24 01:00 Acetaminophen/ Hydrocodone Bitart 1 tab Q4HP PRN PO 06/24/24 01:00 06/24/24 10:22 1 TAB Ondansetron HCl 4 mg Q4HP PRN IV 06/24/24 01:00 Acetaminophen 650 mg Q6HP PRN PO 06/24/24 01:00 Lorazepam 0.5 mg Q12HP PRN PO 06/24/24 14:00 Examination General Appearance: Alert, Cooperative, No acute distress, seems to mild distress. communicates vis sign language, smallish looking man HEENT: Right sided traumatic bruises, swollen, EOMI, Mucous membrane moist/pink Respiratory: Clear to auscultation, Normal air movement Cardiovascular: Regular rate, Normal S1, Normal S2, No murmurs, no chest wall tenderness Abdominal: NO distention, no tenderness, bowel sounds present, no scars noted Extremities: No clubbing, No cyanosis, No edema, Normal pulses, No tenderness/swelling Skin: No rashes, No breakdown, No significant lesion Neuro: Normal gait, Normal speech, Strength at 5/5 X4 ext, Normal tone, Sensation intact, Cranial nerves 3-12 NL, Reflexes 2+ Psych/Mental Status: Mental status NL, Mood NL laboratory and microbiology Laboratory Tests 06/24/24 01:23 Test 06/24/24 01:23 Range/Units Serum Glucose 107 H 74-106 mg/dL Problem List/Assessment/Plan Problem List/Assessment/Plan Assessment Breakthrough seizures Fracture lateral wall right maxillary sinus History of seizures Cerebral palsy Cachexia, BMI 18.6 Plan Continue Keppra 500 mg b.i.d. Check Keppra levels Chest x-ray and rib x-ray was negative UA pending Neurology consult Diet: puree diet DVT prophylaxis; Levonox in no contraindication noted Code status: full Goal of care discussed for more than 35 minute Case and plan discussed with Dr. Rizo Plan discussed with: Patient, Other (mother) My Orders My Orders Orders - DRAGAN ALBRECHT Procedure Category Date Status Time Chest Xray 1 View XY 06/24/24 Resulted 07:10 Drug Screen LAB 06/24/24 Logged 07:10 Urinalysis LAB 06/24/24 Logged 07:10 Pureed DIET 06/24/24 Transmitted Breakfast Levetiracetam (Keppra) LAB 06/24/24 In Process 09:42 Lorazepam Tablet PHA 06/24/24 In Process (Ativan Tablet) 14:00 Date of Service: Jun 24, 2024 Billing Provider: BRIGITTE RIZO MD Common Visit Codes: NOT BILLABLE DRAGAN ALBRECHT RESIDENT Jun 24, 2024 16:23 BRIGITTE RIZO MD Jun 24, 2024 19:18
[2024-06-24] MEDS: LORazepam 0.5 MG TAB PO PRN (21:59)
[2024-06-25] VITALS (8 sets, daily range): BP systolic 83–102; BP diastolic 56–64; PULSE 58–98; RESP 17–20; TEMP 97.5–98.6; O2SAT 94–98
[2024-06-25 06:03] LABS: Chloride 104 mmol/L (98-107); Potassium 3.9 mmol/L (3.5-5.1); Sodium 139 mmol/L (136-145)
[2024-06-25 06:04] LABS: Anion Gap 6 (5-15); Carbon Dioxide 29 mmol/L (20-31)
[2024-06-25 06:05] LABS: Calcium 9.7 mg/dL (8.7-10.4)
[2024-06-25 06:09] LABS: Glucose 83 mg/dL (74-106)
[2024-06-25 06:10] LABS: Blood Urea Nitrogen 8 mg/dL (9-23)
--- NOTE | 2024-06-25 17:25 | DVHPNRES ---
Progress Note Date Seen: Jun 25, 2024 Resident Creating Document: DRAGAN ALBRECHT RESIDENT Has the PT tested + for MRSA If YES, has PT been informed?: No Medical Necessity Reason Pt with a Central, PICC or Fol: No Medical Necessity Reason seizure activity anxiety Subjective Review of Systems This is a 44-year-old male with a past medical history of cerebral palsy, bowel resection in childhood, and seizure activities who presented to the ED via EMS after a seizure-like activity at home. Patient is currently communicates via sign language he understands but communicate via sign language however information was mainly from the mother. According to the mother heard a loud stump and found the patient on the floor with his extremities stretched out in a seizing position. Patient also hit his head on the floor his right side on the floor. He denied any recent nausea vomiting in the child, denied any fevers changes in temperature or changes from his normal baseline activities. Of note the patient does take Keppra daily 500 mg b.i.d. and he was on Austedo for muscle spasm for two years without improvement. During my communication with patient and mother, patient did express pain. Maxilofacial CT showed Fracture lateral wall right maxillary sinus with air-fluid level in the right maxillary sinus.Soft tissue swelling in the right side of the face with air in the subcutaneous tissues. Chest and Rib x-ray are negative. PN: 06/25/2024: Patient seen and examined. Nonverbal but communicates with sign and mother present. He complains via sign language. He kept pointing to his right side. Rib x-ray earlier was unremarkable. Facial swelling is getting better. Patient is on [place] q4hr prn. Patient has been pointing to his side ribs indicating pain. Will make the [place] q4hrs. UA and chest chest ray were all negative. Pending Keppra level. Also pending neurology evaluation. Message sent to the neurologist. Will get CT head. Objective vital signs Vital Sign Date Time Temp Pulse Resp B/P (MAP) Pulse Ox O2 Delivery O2 Flow Rate FiO2 06/25/24 13:00 98.1 82 18 95/63 (74) 94 98.1 06/25/24 08:00 Room Air* 0 21 Total Intake and Output 06/24/24 06/24/24 06/25/24 15:00 23:00 07:00 Intake Total 105 ml 210 ml Output Total 300 ml Balance 105 ml -90 ml medications Current Medications Medications Dose Ordered Sig/Karine Route Start Time Stop Time Status Last Admin Dose Admin Levetiracetam 500 mg BID PO 06/24/24 10:00 06/25/24 09:36 500 MG Patient Own Medication 24 mg DAILY PO 06/24/24 10:00 Lorazepam 1 mg Q5MINP PRN IV 06/24/24 01:00 Ondansetron HCl 4 mg Q4HP PRN IV 06/24/24 01:00 Acetaminophen 650 mg Q6HP PRN PO 06/24/24 01:00 Lorazepam 0.5 mg Q12HP PRN PO 06/24/24 14:00 06/25/24 10:10 0.5 MG Acetaminophen/ Hydrocodone Bitart 1 tab Q4HP PO 06/25/24 17:15 UNV Examination General Appearance: Alert, Cooperative, No acute distress, seems to mild distress. communicates vis sign language, smallish looking man HEENT: improving Right sided traumatic bruises, swollen, EOMI, Mucous membrane moist/pink Respiratory: Clear to auscultation, Normal air movement Cardiovascular: Regular rate, Normal S1, Normal S2, No murmurs, no chest wall tenderness Abdominal: NO distention, no tenderness, bowel sounds present, no scars noted Extremities: No clubbing, No cyanosis, No edema, Normal pulses, No tenderness/swelling Skin: No rashes, No breakdown, No significant lesion Neuro: Normal gait, Normal speech, Strength at 5/5 X4 ext, Normal tone, Sensation intact, Cranial nerves 3-12 NL, Reflexes 2+ Psych/Mental Status: Mental status NL, Mood NL laboratory and microbiology Laboratory Tests 06/25/24 05:02 06/24/24 01:23 Test 06/25/24 05:02 Range/Units Serum Glucose 83 74-106 mg/dL Problem List/Assessment/Plan Problem List/Assessment/Plan Assessment Breakthrough seizures whiles on Keppra Fracture lateral wall right maxillary sinus History of seizures Cerebral palsy Cachexia, BMI 18.6 Plan Continue Keppra 500 mg b.i.d. Check Keppra level Chest x-ray and rib x-ray was negative Neurology consult Diet: puree diet DVT prophylaxis; Levonox if no contraindication noted Code status: full Goal of care discussed for more than 35 minute Case and plan discussed with Dr. Rizo Plan discussed with: Patient My Orders My Orders Orders - DRAGAN ALBRECHT Procedure Category Date Status Time * Neurology Consult CONS 06/25/24 Transmitted 08:00 Hydrocodone-Acet PHA 06/25/24 Logged 5/325mg Tab (Center [place] 17:[address] 06/25/24 Logged 17:05 Date of Service: Jun 25, 2024 Billing Provider: BRIGITTE RIZO MD Common Visit Codes: [id number] INP/OBS CARE(HIGH) DRAGAN ALBRECHT Jun 25, 2024 17:25 BRIGITTE RIZO MD Jun 26, 2024 05:03
[2024-06-25] MEDS: ACETAMINOPHEN 325 MG TAB PO PRN (17:32)
[2024-06-25] MEDS: HYDROcodone-ACET 5/325MG TAB PO SCH ×2 (17:50→22:00)
--- NOTE | 2024-06-25 21:19 | DVHINCON2 ---
Date of service: Jun 25, [address] Bryant Reason for Consultation Seizure History of Present Illness Mr. Frias is a 44-year-old gentleman with a history of cerebral palsy, mental retardation, the patient was taken to the hospital on 06/23/24 with a chief complaint of 4/4 injury. At this time, the patient is awake, has good eye contact, he does not talk, but he was social smile, and he follow a little bit. The history is obtained from his mother who is not a good historian I saw him on 02/12/20, 06/17/2020, 03/30/2022 for seizure, 10/21/2023 for questionable TIA On 06/17/2020, I witnessed seizure with atypical feature Before he came to the [facility] on 06/23/2024, the patient was a fall at home with resultant right periorbital ecchymosis, mother also noticed some seizure activity in that he was shaking in the body, eyes spacing forward On 06/04/2024, he was had several seizure activity, in that he was very brief bilateral shaking spells with interval of 5 minutes, during the seizure/event, his body may turn to either side, or in some of the event, his arms were moving up and down. He has chronic seizure disorder (mother does not know how long it was), when he had seizure attack, the eyes were rolling back, arms were extending forward, with the torso was rolling from side to side, sometimes, his eyes are looking straight forward during the seizure activity He has a [place] epilepsy specialist, and he saw him once, the next follow-up is in 08/2024, [facility] is going to obtained long-term EEG monitoring on him At home, he was on Keppra 500 mg b.i.d. He has cerebral palsy, he does not talk, but is able to understand to some degree, he moves the arms and legs, but not able to feed himself, he is dependent on the family Urinalysis, 06/24/2024: Unremarkable CBC, 06/24/2024: Unremarkable CMP, 06/24/2024: Unremarkable UDS, 06/24/2024: Negative EEG, 06/17/2020: Normal CT head, 06/17/2020: No acute intracranial abnormality identified. Mildly prominent and abnormal sulcation and gyration pattern in bilateral parietal lobe could suggest a congenital abnormality, unchanged from 02/12/2020. Further evaluation for seizure can be made by MRI CT head, 10/20/2023: No acute intracranial pathology. 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 Grossly, no evidence of acute infarction, intracranial hemorrhage, mass effect or hydrocephalus. Past Medical History Cerebral palsy, mental retardation Past Surgical History Abdominal surgeries, leg surgery, I suspect tendon release, feeding tube insertion Family History: Polio G8 FATHER Thyroid disease G8 MOTHER Family History Diabetes, thyroid disease, polio Social History The patient is a nontobacco smoker, no history of alcohol recreational substance abuse Allergies: Coded Allergies: Ampicillin (Verified Allergy, Unknown, 08/14/14) Penicillins (Verified Allergy, Unknown, 08/14/14) Home Meds Reported Medications Lorazepam (Ativan) 0.5 Mg Tab, 0.5 MG PO PRN for ANXIETY, TAB 06/24/24 Levetiracetam (Keppra) 500 Mg Tab, 500 MG PO BID for 30 Days, MG 10/21/23 Acetaminophen (Tylenol Extra Strength) 500 Mg Tab, 500 MG PO PRN PRN for PAIN, TAB 02/12/20 Current Medications Current Medications Medications (Trade) Dose Ordered Sig/Karine Route PRN Reason Start Time Stop Time Status Last Admin Acetaminophen/ Hydrocodone Bitart ([place] 5/325MG Tab) 1 tab Q4HP PO 06/25/24 17:15 06/25/24 17:56 DC 06/25/24 17:50 Acetaminophen/ Hydrocodone Bitart ([place] 5/325MG Tab) 1 tab Q4H PO 06/25/24 22:00 Review of Systems As above, the other systems are negative Vital Signs Vital Signs Date Time Temp Pulse Resp B/P (MAP) Pulse Ox O2 Delivery O2 Flow Rate FiO2 06/25/24 17:00 98.0 98 18 102/64 (77) 98 98.0 06/25/24 08:00 Room Air* 0 21 Physical Exam The patient is well-nourished and well-developed with no distress HEENT: Normocephalic, neck supple, no carotid bruits Lungs: Clear to auscultation Cardiovascular: Regular rate and region, S1, S2, no murmurs Abdomen: Soft, nontender, normal bowel sounds MENTAL STATUS: He responds to loud voice, he looks and tracks CRANIAL NERVES: Pupils are equal round and reactive to light briskly, normal external eye movement, normal sensation and motor examination in the lateral trigeminal nerve distribution, no facial weakness. SENSATION: Okay to pinprick and light touch MOTOR: Diffuse muscle atrophy due to disuse. No fasciculations. He moves his arms, he can move the legs slightly REFLEXES: Deep tendon reflexes are symmetrical. Bilateral upgoing toes CEREBELLAR/COORDINATION: Deferred GAIT/STATION: deferred Labs/Diagnostic Data Labs Test 06/25/24 05:02 06/24/24 15:13 06/24/24 10:40 06/24/24 01:23 Range/Units Sodium Level 139 136-145 mmol/L Potassium Level 3.9 3.5-5.1 mmol/L Chloride Level 104 98-107 mmol/L Carbon Dioxide Level 29 20-31 mmol/L Anion Gap 6 5-15 Blood Urea Nitrogen 8 L 9-23 mg/dL Creatinine 0.73 0.700-1.30 mg/dL Glomerular Filtration Rate Calc 114 >90 mL/min BUN/Creatinine Ratio 11.0 10.0-20.0 Serum Glucose 83 74-106 mg/dL Calcium Level 9.7 8.7-10.4 mg/dL Urine Color Light-yellow Yellow Urine Clarity Clear Clear Urine pH 7.0 5.0-9.0 Urine Specific [place] 1.006 1.001-1.035 Urine Protein Negative Negative Urine Ketones Negative Negative Urine Blood Negative Negative /uL Urine Nitrite Negative Negative Urine Bilirubin Negative Negative Urine Urobilinogen Normal Negative mg/dL Urine Leukocyte Esterase Negative Negative /uL Urine RBC 1 0 - 3 /hpf Urine Microscopic WBC < 1 0-3 /HPF Urine Squamous Epithelial Cells None seen <5 /hpf Urine Amorphous Crystals Few None Seen /hpf Urine Bacteria None seen None Seen /hpf Urine Glucose Normal Normal mg/dL Urine Opiates Screen Neg NEGATIVE Urine Fentanyl Screen Neg NEGATIVE Urine Barbiturates Screen Neg NEGATIVE Urine Phencyclidine Screen Neg NEGATIVE Urine Amphetamines Screen Neg NEGATIVE Urine Benzodiazepines Screen Neg NEGATIVE Urine Cocaine Screen Neg NEGATIVE Urine Cannabinoids Screen Neg NEGATIVE White Blood Count 9.5 4.4-10.8 10^3/uL Red Blood Count 5.02 4.5-5.90 10^6/uL Hemoglobin 15.8 13.5-17.5 g/dL Hematocrit 45.5 41.0-53.0 % Mean Corpuscular Volume 90.8 80.0-100.0 fL Mean Corpuscular Hemoglobin 31.5 28.0-32.0 pg Mean Corpuscular Hemoglobin Concent 34.7 32.0-36.0 g/dL Red Cell Distribution Width 12.3 11.8-14.3 % Platelet Count 186 140-450 10^3/uL Mean Platelet Volume 10.0 6.9-10.8 fL Neutrophils (%) (Auto) 77.4 37.0-80.0 % Lymphocytes (%) (Auto) 15.9 10.0-50.0 % Monocytes (%) (Auto) 5.8 0.0-12.0 % Eosinophils (%) (Auto) 0.3 0.0-7.0 % Basophils (%) (Auto) 0.6 0.0-2.0 % Neutrophils # (Auto) 7.4 1.6-8.6 10 ^3/uL Lymphocytes # (Auto) 1.5 0.4-5.4 10 ^3/uL Monocytes # (Auto) 0.6 0-1.3 10 ^3/uL Eosinophils # (Auto) 0 0-0.8 10 ^3/uL Basophils # (Auto) 0.1 0-0.2 10 ^3/uL Nucleated Red Blood Cells 0.1 % Total Bilirubin 0.7 0.2-1.0 mg/dL Aspartate Amino Transferase (AST) 27 13-40 U/L Alanine Aminotransferase (ALT) 33 7-40 U/L Alkaline Phosphatase 70 46-116 U/L Creatine Kinase 67 46-171 U/L Total Protein 7.4 5.7-8.2 g/dL Albumin 4.6 3.2-4.8 g/dL Assessment Episode event, epileptic seizure versus nonepileptic event Cerebral palsy Mental retardation Plan/Recommendation Monitoring Support treatment Keppra 500 mg at bedtime Ativan for seizure breakthrough DVT prophylax/Lovenox GI prophylax/famotidine More recommendation depend on patient clinical course Follow-up with his doctors, especially Oanh Cazares epilepsy specialist on discharge Progress: Poor This medical document was created using an electronic medical record system with Dragon computerized dictation system. Although this document has been carefully reviewed, there may still be some phonetic and typographical errors. These areas are purely typographical due to imperfections of the software programs, and do not reflect any compromise in the patient's medical care. Plan discussed with: CHRISTINE Serna MD Jun 25, 2024 21:19
[2024-06-26] VITALS (8 sets, daily range): BP systolic 95–112; BP diastolic 59–67; PULSE 55–68; RESP 16–19; TEMP 97.6–98.7; O2SAT 95–98
[2024-06-26] MEDS: HEPARIN SODIUM (PORCINE) 5000 UNITS/ML 1ML VIAL SC SCH (01:09)
--- NOTE | 2024-06-26 08:43 | DVH ---
CLINICAL INFORMATION: 44 years old, Male; status post fall injury at home. TECHNIQUE: Axial imaging was obtained through the brain without contrast. Coronal and sagittal refor matted images were obtained, reviewed, and stored. Images were reviewed in brain and bone windows. A ll CT scans at this medical facility are performed using dose modulation techniques as appropriate to a performed exam including the following: Automated exposure control was utilized; adjustment of the MA and/or KV according to patient size; and use of iterative reconstruction technique. CTDIvol = 46.87 mGy DLP = 846.86 mGy-cm COMPARISON: CT HEAD WITHOUT CONTRAST on DOS: 10/20/23, CERVICAL WITHOUT CONTRAST on DOS: 06/17/20, HEAD WITHOUT CONTRAST on DOS: 06/17/20. Correlation also made to CT maxillofacial exam dated 06/24/2024. FINDINGS: There is no acute intracranial hemorrhage or extraaxial fluid collection. No mass effect o r midline shift. The ventricles and sulci are within normal limits in size for age. Basal cisterns a re patent. There is a fluid level in the right maxillary sinus with re-demonstration of acute fra cture involving the lateral wall likely anterior wall of the right maxillary sinus locules of gas ailin ng the right side of the face right and periorbital region. No calvarial fracture visualized. IMPRESSION: 1. No CT evidence of acute intracranial abnormality. 2. Fractures involving the lateral likely anterior angel of the right maxillary sinus with locules of gas along the right side of the face and fluid level in the right maxillary sinus, seen on recent CT maxillofacial exam correlate with CT maxillofacial report.
[2024-06-26] MEDS: LACTULOSE 20Gm/30ML SOLN PO ONE (11:50)
--- NOTE | 2024-06-26 15:35 | DVHPNRES ---
Progress Note Date Seen: Jun 26, 2024 Resident Creating Document: DRAGAN ALBRECHT RESIDENT Has the PT tested + for MRSA If YES, has PT been informed?: No Medical Necessity Reason Pt with a Central, PICC or Fol: No Medical Necessity Reason Seizure activity Cerebral palsy Subjective Review of Systems This is a 44-year-old male with a past medical history of cerebral palsy, bowel resection in childhood, and seizure activities who presented to the ED via EMS after a seizure-like activity at home. Patient is currently communicates via sign language he understands but communicate via sign language however information was mainly from the mother. According to the mother heard a loud stump and found the patient on the floor with his extremities stretched out in a seizing position. Patient also hit his head on the floor his right side on the floor. He denied any recent nausea vomiting in the child, denied any fevers changes in temperature or changes from his normal baseline activities. Of note the patient does take Keppra daily 500 mg b.i.d. and he was on Austedo for muscle spasm for two years without improvement. During my communication with patient and mother, patient did express pain. Maxilofacial CT showed Fracture lateral wall right maxillary sinus with air-fluid level in the right maxillary sinus.Soft tissue swelling in the right side of the face with air in the subcutaneous tissues. Chest and Rib x-ray are negative. PN: 06/25/2024: Patient seen and examined. Nonverbal but communicates with sign and mother present. He complains via sign language. He kept pointing to his right side. Rib x-ray earlier was unremarkable. Facial swelling is getting better. Patient is on Clyde q4hr prn. Patient has been pointing to his side ribs indicating pain. Will make the Clyde q4hrs. UA and chest chest ray were all negative. Pending Keppra level. Also pending neurology evaluation. Message sent to the neurologist. Will get CT head. PN: 06/26/2024: Patient is seen and examined at bedside today. He has similar better he is smiling pain is much more reduced and patient expresses his feeling by smiling alone according to the mother. Patient was also seen by the neurologist last night who has recommended for the patient have an EEG. Currently pending that. Prior to that, I had ordered a CT of the head which showed no acute intracranial abnormalities. Patient continued to be stable in terms of vital signs and lab work no abnormalities noted so far. Objective vital signs Vital Sign Date Time Temp Pulse Resp B/P (MAP) Pulse Ox O2 Delivery O2 Flow Rate FiO2 06/26/24 13:00 97.9 68 19 101/64 (76) 98 97.9 06/26/24 08:00 Room Air* 0 21 Total Intake and Output 06/25/24 06/25/24 06/26/24 15:00 23:00 07:00 Intake Total 150 ml 200 ml Balance 150 ml 200 ml medications Current Medications Medications Dose Ordered Sig/Karine Route Start Time Stop Time Status Last Admin Dose Admin Levetiracetam 500 mg BID PO 06/24/24 10:00 06/26/24 08:54 500 MG Patient Own Medication 24 mg DAILY PO 06/24/24 10:00 Lorazepam 1 mg Q5MINP PRN IV 06/24/24 01:00 Ondansetron HCl 4 mg Q4HP PRN IV 06/24/24 01:00 Acetaminophen 650 mg Q6HP PRN PO 06/24/24 01:00 Lorazepam 0.5 mg Q12HP PRN PO 06/24/24 14:00 06/25/24 21:31 0.5 MG Heparin Sodium (Porcine) 5,000 units Q12HR SC 06/25/24 22:00 06/26/24 08:55 5,000 UNITS Acetaminophen/ Hydrocodone Bitart 1 tab Q4H PRN PO 06/26/24 09:15 Examination General Appearance: Alert, Cooperative, No acute distress, seems to mild distress. communicates vis sign language, smallish looking man HEENT: improving Right sided traumatic bruises, swollen, EOMI, Mucous membrane moist/pink Respiratory: Clear to auscultation, Normal air movement Cardiovascular: Regular rate, Normal S1, Normal S2, No murmurs, no chest wall tenderness Abdominal: NO distention, no tenderness, bowel sounds present, no scars noted Extremities: No clubbing, No cyanosis, No edema, Normal pulses, No tenderness/swelling Skin: No rashes, No breakdown, No significant lesion Neuro: Normal gait, Normal speech, Strength at 5/5 X4 ext, Normal tone, Sensation intact, Cranial nerves 3-12 NL, Reflexes 2+ Psych/Mental Status: Mental status NL, Mood NL laboratory and microbiology Laboratory Tests 06/25/24 05:02 2/5/25 01:23 Test 06/25/24 05:02 Range/Units Serum Glucose 83 74-106 mg/dL Labs and/or images reviewed: Labs reviewed by me, Image(s) reviewed by me Problem List/Assessment/Plan Problem List/Assessment/Plan Assessment Breakthrough seizures whiles on Keppra Fracture lateral wall right maxillary sinus History of seizures Cerebral palsy Cachexia, BMI 18.6 Mental retardation Plan Continue Keppra 500 mg b.i.d ( HS at bed time) Check Keppra level Chest x-ray and rib x-ray was negative Neurology following EEG pending legal services manager to provide resource to the family Ativan for seizure breakthrough GI prophylax/famotidine Diet: puree diet DVT prophylaxis; Heparin if no contraindication noted Code status: full Goal of care discussed for 20 minutes Case and plan discussed with Dr. Brown Plan discussed with: Patient, Other (Father; RN) My Orders My Orders Orders - DRAGAN ALBRECHT RESIDENT Procedure Category Date Status Time Head Without Contrast CT 06/26/24 Resulted 07:27 Hydrocodone-Acet PHA 06/26/24 In Process 5/325mg Tab (Clyde 09:15 * Book Publisher CONS 06/26/24 Transmitted Consult Addendum Addendum Addendum I was physically present for the pacheco portions of the service provided to patient by THE RESIDENT. I have reviewed the documentation, discussed the case with resident and agree with the resident's documentation except as noted. Also the patient's clinical case was discussed with the patient's nurse. This medical document was created using an electronic medical record system with computerized dictation system. Although this document has been carefully reviewed, there might still be some phonetic and typographical errors. These areas are purely typographical due to imperfections of the software programs, and do not reflect any compromise in the patient's medical care. Late signature. Date of Service: Jun 26, 2024 Billing Provider: NNAMDI BROWN MD Common Visit Codes: 05331-[id number] INP/OBS CARE(HIGH) Secondary Visit Codes: [id number] CARE PLAN 30 MINUTES (20 minutes) DRAGAN ALBRECHT Jun 26, 2024 15:35 NNAMDI BROWN MD Jun 27, 2024 07:14
[2024-06-26] MEDS: FAMOTIDINE (10MG/ML) 2ML VL IV ONE (17:31)
[2024-06-26] MEDS: HYDROcodone-ACET 5/325MG TAB PO PRN (20:11)
--- NOTE | 2024-06-26 20:54 | DVHPN2 ---
Progress Note - Dictate Date Seen: Jun 26, 2024 Has the PT tested + for MRSA If YES, has PT been informed?: No Medical Necessity Reason Pt with a Central, PICC or Fol: No Subjective Mr. Frias is a 44-year-old gentleman with a history of cerebral palsy, mental retardation, the patient was taken to the hospital on 06/23/24 with a chief complaint of 4/4 injury. At this time, the patient is awake, has good eye contact, he does not talk, but he was social smile, and he follow a little bit. The history is obtained from his mother who is not a good historian I saw him on 02/12/20, 06/17/2020, 03/30/2022 for seizure, 10/21/2023 for questionable TIA On 06/17/2020, I witnessed seizure with atypical feature. The seizure activity the mother reported on 06/25/24 was with a typical features Mother relates his Keppra was 500 mg daily and was increased to 500 b.i.d. recently, and I am cutting down the dosage back to 500 mg daily He is happy, he responds to his surroundings, he moves the arms and legs His nurse has noticed the patient enjoys Ativan treatment Urinalysis, 06/24/2024: Unremarkable CBC, 06/24/2024: Unremarkable CMP, 06/24/2024: Unremarkable UDS, 06/24/2024: Negative EEG, 06/17/2020: Normal CT head, 06/17/2020: No acute intracranial abnormality identified. Mildly prominent and abnormal sulcation and gyration pattern in bilateral parietal lobe could suggest a congenital abnormality, unchanged from 02/12/2020. Further evaluation for seizure can be made by MRI CT head, 10/20/2023: No acute intracranial pathology. 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 Grossly, no evidence of acute infarction, intracranial hemorrhage, mass effect or hydrocephalus. vital signs Vital Sign Date Time Temp Pulse Resp B/P (MAP) Pulse Ox O2 Delivery O2 Flow Rate FiO2 06/26/24 17:00 98.2 68 16 112/63 (79) 98 98.2 06/26/24 08:00 Room Air* 0 21 Total Intake and Output 06/25/24 06/25/24 06/26/24 15:00 23:00 07:00 Intake Total 150 ml 200 ml Balance 150 ml 200 ml medications Current Medications Medications Dose Ordered Sig/Karine Route Start Time Stop Time Status Last Admin Dose Admin Levetiracetam 500 mg BID PO 06/24/24 10:00 06/26/24 08:54 500 MG Patient Own Medication 24 mg DAILY PO 06/24/24 10:00 Lorazepam 1 mg Q5MINP PRN IV 06/24/24 01:00 Ondansetron HCl 4 mg Q4HP PRN IV 06/24/24 01:00 Acetaminophen 650 mg Q6HP PRN PO 06/24/24 01:00 Lorazepam 0.5 mg Q12HP PRN PO 06/24/24 14:00 06/26/24 16:15 0.5 MG Heparin Sodium (Porcine) 5,000 units Q12HR SC 06/25/24 22:00 06/26/24 08:55 5,000 UNITS Acetaminophen/ Hydrocodone Bitart 1 tab Q4H PRN PO 06/26/24 09:15 06/26/24 20:11 1 TAB Famotidine 20 mg DAILY IV 06/27/24 10:00 objective The patient is well-nourished and well-developed with no distress MENTAL STATUS: He responds to loud voice, he looks and tracks CRANIAL NERVES: Pupils are equal round and reactive to light briskly, normal external eye movement, normal sensation and motor examination in the lateral trigeminal nerve distribution, no facial weakness. SENSATION: Okay to pinprick and light touch MOTOR: Diffuse muscle atrophy due to disuse. No fasciculations. He moves his arms and legs, the muscle power feels no less than 4/5 REFLEXES: Deep tendon reflexes are symmetrical. Bilateral upgoing toes CEREBELLAR/COORDINATION: Deferred GAIT/STATION: deferred laboratory and microbiology Laboratory Tests 06/25/24 05:02 06/24/24 01:23 Test 06/25/24 05:02 Range/Units Serum Glucose 83 74-106 mg/dL Problem List Episode event, epileptic seizure versus nonepileptic event Cerebral palsy Mental retardation Assessment/Plan Monitoring Support treatment Reduce Keppra to 250 mg at bedtime Ativan for seizure breakthrough DVT prophylax/Lovenox GI prophylax/famotidine More recommendation depend on patient clinical course Follow-up with his doctors, especially Oanh Cazares epilepsy specialist on discharge This medical document was created using an electronic medical record system with [employer] dictation system. Although this document has been carefully reviewed, there may still be some phonetic and typographical errors. These areas are purely typographical due to imperfections of the software programs, and do not reflect any compromise in the patient's medical care. Prognosis poor Plan discussed with: Other Total Time (mins): 35 CHRISTINE WATT MD Jun 26, 2024 20:54
[2024-06-26 21:45] LABS: Hematocrit 39.3 % (41.0-53.0); Hemoglobin 13.8 g/dL (13.5-17.5)
[2024-06-26] MEDS: levETIRAcetam 500 MG TAB PO SCH (22:27)
--- NOTE | 2024-06-26 22:46 | DVHEEG2 ---
Neurology EEG Procedural Note Procedural Note EXAM DATE: 06/26/2024 REFERRING DOCTOR: Dr. Watt TECHNIQUE: Eighteen channels of EEG, 2 channels of EOG, and 1 channel of EKG were recorded using the International 10/20 system. CLINICAL DATA: The patient was referred for an EEG evaluation for the evidence of seizure disorder. MEDICATIONS: See the chart BACKGROUND ACTIVITY: While the patient was awake, the background activity consisted of well regulated 10 Hz rhythmic waveforms, symmetrically distributed over both posterior quadrants and was reactive to eye opening. ACTIVATION: Hyperventilation: Not done Photic Stimulation: Not done Sleep: Noticed IMPRESSION: This is a normal EEG. No focal, lateralized, or epileptiform features are noted. If clinically indicated to rule out a seizure disorder, recommend repeat EEG with sleep deprivation. The EKG channel showed a regular heart rate of 54/min[place] [address] CHRISTINE WATT MD Jun 26, 2024 22:46
[2024-06-27 01:00] VITALS: BP 91/57; PULSE 56; RESP 20; TEMP 97.7; O2SAT 97
[2024-06-27 05:00] VITALS: BP 91/51; PULSE 53; RESP 20; TEMP 97.7; O2SAT 96
[2024-06-27 07:21] LABS: Basophils # (auto) 0 10 ^3/uL (0-0.2); Basophils % (auto) 0.8 % (0.0-2.0); Eosinophils # (auto) 0.3 10 ^3/uL (0-0.8); Eosinophils % (auto) 6.7 % (0.0-7.0); Hematocrit 41.1 % (41.0-53.0); Hemoglobin 14.4 g/dL (13.5-17.5); Lymphocytes # (auto) 1.7 10 ^3/uL (0.4-5.4); Lymphocytes % (auto) 37.8 % (10.0-50.0); Mean Corpuscular Hemoglobin 31.7 pg (28.0-32.0); Mean Corpuscular Hgb Conc. 34.9 g/dL (32.0-36.0); Mean Corpuscular Volume 90.7 fL (80.0-100.0); Monocytes # (auto) 0.3 10 ^3/uL (0-1.3); Monocytes % (auto) 6.9 % (0.0-12.0); Neutrophils # (auto) 2.1 10 ^3/uL (1.6-8.6); Neutrophils % (auto) 47.8 % (37.0-80.0); Nucleated Red Blood Cells % 0.1 %; Platelet Count (auto) 163 10^3/uL (140-450); Red Blood Cells 4.53 10^6/uL (4.5-5.90); Red Cell Distribution Width 12.4 % (11.8-14.3); White Blood Cell 4.5 10^3/uL (4.4-10.8)
[2024-06-27 07:32] LABS: Anion Gap 6 (5-15); Carbon Dioxide 30 mmol/L (20-31); Chloride 104 mmol/L (98-107); Potassium 4.1 mmol/L (3.5-5.1); Sodium 140 mmol/L (136-145)
[2024-06-27 07:33] LABS: Calcium 9.9 mg/dL (8.7-10.4)
[2024-06-27 07:38] LABS: Glucose 77 mg/dL (74-106)
[2024-06-27 07:39] LABS: Blood Urea Nitrogen 5 mg/dL (9-23)
[2024-06-27 08:05] VITALS: PULSE 64; RESP 17; O2SAT 98
[2024-06-27 08:58] VITALS: BP 94/61; PULSE 64; RESP 17; TEMP 97.4; O2SAT 98
[2024-06-27] MEDS: FAMOTIDINE (10MG/ML) 2ML VL IV SCH (10:12)
[2024-06-27] MEDS: levETIRAcetam 500 MG TAB PO SCH (16:18)
[2024-06-27 17:38] VITALS: BP 103/63; PULSE 72; RESP 17; TEMP 98.7; O2SAT 92
--- NOTE | 2024-06-27 18:14 | DVHDSRES ---
Discharge Summary Date of Admission Resident Creating Document: DRAGAN ALBRECHT RESIDENT Jun 24, 2024 at 00:47 Date of Discharge: Jun 27, 2024 Admitting Diagnosis Seizure-like activity Labs/Diagnostic Data: PATIENT: WINIFRED OLIVARES ACCT: [id number] UNIT: [id number] : 1980 LOC: CENTRAL ROOM / BED: 0205 / A AGE / SEX: 44 / M ADM STATUS: ADM IN SERVICE 0727 ORDERING PHYSICIAN: DRAGAN ALBRECHT PROCEDURE(s): HWOCT - HEAD WITHOUT CONTRAST REASON: S/P FALL AT HOME ORDER NUMBER(s): [id number], ACCESSION NUMBER(s): [id number] CLINICAL INFORMATION: 44 years old, Male; status post fall injury at home. TECHNIQUE: Axial imaging was obtained through the brain without contrast. Coronal and sagittal reformatted images were obtained, reviewed, and stored. Images were reviewed in brain and bone windows. All CT scans at this medical facility are performed using dose modulation techniques as appropriate to a performed exam including the following: Automated exposure control was utilized; adjustment of the MA and/or KV according to patient size; and use of iterative reconstruction technique. CTDIvol = 46.87 mGy DLP = 846.86 mGy-cm COMPARISON: CT HEAD WITHOUT CONTRAST on DOS: 10/20/23, CERVICAL WITHOUT CONTRAST on DOS: 06/17/20, HEAD WITHOUT CONTRAST on DOS: 06/17/20. Correlation also made to CT maxillofacial exam dated 06/24/2024. FINDINGS: There is no acute intracranial hemorrhage or extraaxial fluid collection. No mass effect or midline shift. The ventricles and sulci are within normal limits in size for age. Basal cisterns are patent. There is a fluid level in the right maxillary sinus with re-demonstration of acute fracture involving the lateral wall likely anterior wall of the right maxillary sinus locules of gas along the right side of the face right and periorbital region. No calvarial fracture visualized. IMPRESSION: 1. No CT evidence of acute intracranial abnormality. 2. Fractures involving the lateral likely anterior angel of the right maxillary sinus with locules of gas along the right side of the face and fluid level in the right maxillary sinus, seen on recent CT maxillofacial exam correlate with CT maxillofacial report. Signed PATIENT: WINIFRED OLIVARES ACCT: [id number] UNIT: [id number] : 1980 LOC: CENTRAL ROOM / BED: [facility] / A AGE / SEX: 44 / M ADM STATUS: ADM IN SERVICE 0710 ORDERING PHYSICIAN: DRAGAN ALBRECHT PROCEDURE(s): CXR1 - CHEST XRAY 1 VIEW REASON: rule out aspiration ORDER NUMBER(s): [id number], ACCESSION NUMBER(s): [id number] CHEST RADIOGRAPH Indication: rule out aspiration Technique: Single frontal view of the chest was obtained COMPARISON: CHEST PORTABLE on DOS: 02/15/20, CHEST PORTABLE on DOS: 02/14/20 FINDINGS: Lines and Tubes: None Lungs: Clear Pleura: No effusion. No pneumothorax. Cardiomediastinal contours: Unremarkable Bones: Unremarkable IMPRESSION: No acute disease. ATED BY: SHAHRIAR MAURO MD DICTATED DATE/TIME: 06/24/24 0838 PATIENT: WINIFRED OLIVARES ACCT: [id number] UNIT: [id number] : 1980 LOC: ER ROOM / BED: / AGE / SEX: 44 / M ADM STATUS: REG ER SERVICE 2156 ORDERING PHYSICIAN: TRIHSA FARNSWORTH DO PROCEDURE(s): RRIBS - R RIB XRAY REASON: fall ORDER NUMBER(s): [id number], ACCESSION NUMBER(s): [id number] EXAMINATION: XY R RIB XRAY INDICATION: fall COMPARISON: None TECHNIQUE: Frontal view of the chest and 4 views of the right ribs history FINDINGS: No focal consolidation, pleural effusion or significant pneumothorax. Normal cardiomediastinal silhouette. No displaced right rib fracture. IMPRESSION: No acute cardiopulmonary disease. No displaced right rib fracture. ATED BY: MAHI LOMELI MD DICTATED DATE/TIME: 06/23/241 PATIENT: WINIFRED OLIVARES ACCT: [id number] UNIT: [id number] : 1980 LOC: ER ROOM / BED: / AGE / SEX: 44 / M ADM STATUS: REG ER SERVICE 55 ORDERING PHYSICIAN: TRISHA FARNSWORTH DO PROCEDURE(s): FAC2C - MAXILLOFACIAL WITHOUT REASON: fall injury ORDER NUMBER(s): [id number], ACCESSION NUMBER(s): [id number] HISTORY: fall injury TECHNIQUE: Nonenhanced axial images through the facial bones with coronal and sagittal MPR. Radiation Dose Information: CT Dose: CTDI volume is 60.71 mGy. Dose-length product is 2680.65 mGy*cm FINDINGS: Mandible: Limited evaluation due to involuntary movements. No gross fracture visualized. Maxilla: Indeterminate because of involuntary motion. Pterygoid plates: Intact Zygomatic processes: Fracture is indeterminate because of involuntary motion. Zygomatic arches: Indeterminate because of involuntary motion Orbits: Preseptal air in the right orbit. No soft tissue swelling or air in the post septal portion of the right orbit. Sinuses: Air-fluid level right maxillary sinus Facial swelling: Soft tissue swelling right side of the face. Air in the subcutaneous tissues on the right side of the face. This may be due to fracture in the lateral wall of the right maxillary sinus IMPRESSION: 1. Fracture lateral wall right maxillary sinus with air-fluid level in the right maxillary sinus. 2. Soft tissue swelling in the right side of the face with air in the subcutaneous tissues. Radiation optimization: All CT scans at this facility use at least one of these dose optimization techniques: automated exposure control mA and/or kV adjustment per patient size (includes targeted exams where dose is matched to clinical indication) or iterative reconstruction. ATED BY: HEVER ROSE Jr. DO DICTATED DATE/TIME: 06/23/24 2256 Laboratory Results Test 06/27/24 06:40 06/24/24 15:13 06/24/24 10:40 06/24/24 01:23 White Blood Count 4.5 10^3/uL (4.4-10.8) Red Blood Count 4.53 10^6/uL (4.5-5.90) Hemoglobin 14.4 g/dL (13.5-17.5) Hematocrit 41.1 % (41.0-53.0) Mean Corpuscular Volume 90.7 fL (80.0-100.0) Mean Corpuscular Hemoglobin 31.7 pg (28.0-32.0) Mean Corpuscular Hemoglobin Concent 34.9 g/dL (32.0-36.0) Red Cell Distribution Width 12.4 % (11.8-14.3) Platelet Count 163 10^3/uL (140-450) Mean Platelet Volume 9.8 fL (6.9-10.8) Neutrophils (%) (Auto) 47.8 % (37.0-80.0) Lymphocytes (%) (Auto) 37.8 % (10.0-50.0) Monocytes (%) (Auto) 6.9 % (0.0-12.0) Eosinophils (%) (Auto) 6.7 % (0.0-7.0) Basophils (%) (Auto) 0.8 % (0.0-2.0) Neutrophils # (Auto) 2.1 10 ^3/uL (1.6-8.6) Lymphocytes # (Auto) 1.7 10 ^3/uL (0.4-5.4) Monocytes # (Auto) 0.3 10 ^3/uL (0-1.3) Eosinophils # (Auto) 0.3 10 ^3/uL (0-0.8) Basophils # (Auto) 0 10 ^3/uL (0-0.2) Nucleated Red Blood Cells 0.1 % Sodium Level 140 mmol/L (136-145) Potassium Level 4.1 mmol/L (3.5-5.1) Chloride Level 104 mmol/L (98-107) Carbon Dioxide Level 30 mmol/L (20-31) Anion Gap 6 (5-15) Blood Urea Nitrogen 5 mg/dL (9-23) Creatinine 0.71 mg/dL (0.700-1.30) Glomerular Filtration Rate Calc 115 mL/min (>90) BUN/Creatinine Ratio 7.0 (10.0-20.0) Serum Glucose 77 mg/dL (74-106) Calcium Level 9.9 mg/dL (8.7-10.4) Urine Color Light-yellow (Yellow) Urine Clarity Clear (Clear) Urine pH 7.0 (5.0-9.0) Urine Specific [place] 1.006 (1.001-1.035) Urine Protein Negative (Negative) Urine Ketones Negative (Negative) Urine Blood Negative /uL (Negative) Urine Nitrite Negative (Negative) Urine Bilirubin Negative (Negative) Urine Urobilinogen Normal mg/dL (Negative) Urine Leukocyte Esterase Negative /uL (Negative) Urine RBC 1 /hpf (0 - 3) Urine Microscopic WBC < 1 /HPF (0-3) Urine Squamous Epithelial Cells None seen /hpf (<5) Urine Amorphous Crystals Few /hpf (None Seen) Urine Bacteria None seen /hpf (None Seen) Urine Glucose Normal mg/dL (Normal) Urine Opiates Screen Neg (NEGATIVE) Urine Fentanyl Screen Neg (NEGATIVE) Urine Barbiturates Screen Neg (NEGATIVE) Urine Phencyclidine Screen Neg (NEGATIVE) Urine Amphetamines Screen Neg (NEGATIVE) Urine Benzodiazepines Screen Neg (NEGATIVE) Urine Cocaine Screen Neg (NEGATIVE) Urine Cannabinoids Screen Neg (NEGATIVE) Total Bilirubin 0.7 mg/dL (0.2-1.0) Aspartate Amino Transferase (AST) 27 U/L (13-40) Alanine Aminotransferase (ALT) 33 U/L (7-40) Alkaline Phosphatase 70 U/L (46-116) Creatine Kinase 67 U/L (46-171) Total Protein 7.4 g/dL (5.7-8.2) Albumin 4.6 g/dL (3.2-4.8) Other Laboratory Tests 06/27/24 06:40 Brief Hx & Hospital Course: BRIEF history AND HOSPITAL COURSE This 44-year-old male with a history of cerebral palsy, bowel resection in childhood, and seizure presented to the ED via EMS after a seizure-like activity at home. Patient is nonverbal and communicates using his right hand and gestures. Or his mother translates the her son is trying to communicate. According to the mother, she heard a loud stump and found the patient on the floor with his extremities stretched out in a seizing position. Patient also hit his head on the floor with his right side showing swelling. He denied any recent nausea, vomiting, fevers or changes from his normal baseline activities. Of note, the patient does take Keppra daily 500 mg b.i.d. and he was on Austedo for muscle spasm for two years without improvement. During my communication with patient and mother, patient did express pain and moving his mouth ( per mother is a sign of anxiety). Maxilofacial CT showed Fracture lateral wall right maxillary sinus with air-fluid level in the right maxillary sinus. Soft tissue swelling in the right side of the face with air in the subcutaneous tissues. Chest and Rib x-ray are negative. Hospital course At the hospitals, lab work did not reveal any electrolytes abnormalities. UA and chest chest ray were all negative and CT of the head which showed no acute intracranial abnormalities. He received pain medication ([place] q4hr prn) and anti-anxiety medication (ativan) .We continued his anti-seizure medication and consult neurology for further assessment. EEG showed normal EEG. No focal, lateralized, or epileptiform features are noted. Mother complained that sometimes, patient feels short of breath after brief walk and she wanted to know if he could be on oxygen at home. PT and respiratory team walked with the patient and measured his oxygen saturation during exertion. His oxygen level only dropped to 86% for a few seconds ( less than 3 seconds) and returned to normal. On average, his spo2 reading on exertion was 92-96%. Thus, I explained to the mother that there is no need for home oxygen. Also, the neurology change his anti-seizure medication ( Keppra) from 500mg during the day and 250 at night time instead of the previous 500mg bid. Patient is stable and will discharge him tonight. Family has been advised to follow up with his PCP and neurologist. Patient was seen by the social media intern for home health. However, mother mentioned to me that they are ok and they can handle it and they have been doing all this time. Examination General Appearance: Alert, Cooperative, No acute distress, seems to mild distress. communicates vis sign language, smallish looking man HEENT: improving Right sided traumatic bruises, swollen, EOMI, Mucous membrane moist/pink Respiratory: Clear to auscultation, Normal air movement Cardiovascular: Regular rate, Normal S1, Normal S2, No murmurs, no chest wall tenderness Abdominal: NO distention, no tenderness, bowel sounds present, no scars noted Extremities: No clubbing, No cyanosis, No edema, Normal pulses, No tenderness/swelling Skin: No rashes, No breakdown, No significant lesion Neuro: Normal gait, Normal speech, Strength at 5/5 X4 ext, Normal tone, Sensation intact, Cranial nerves 3-12 NL, Reflexes 2+ Psych/Mental Status: Mental status NL, Mood NL DIAGNOSES Seizure like activity, nonepileptic event Fracture lateral wall right maxillary sinus after a fall History of seizures Cerebral palsy Cachexia, BMI 18.6 Mental retardation anxiety Discharge Plan Continue Keppra 500 mg in the day and 250mg at bed Keppra level pending Ativan .5mg prn for anxiety GI prophylax/famotidine Follow up with Neurology outpatient Follow up with PCP if mother decided she needs home health Diet: puree diet DVT prophylaxis; Heparin if no contraindication noted Case and plan discussed with Consults/Reason for consult Breakthrough seizures Condition at Discharge: Good Final Diagnosis/Problems List Breakthrough seizures whiles on Keppra Fracture lateral wall right maxillary sinus History of seizures Cerebral palsy Cachexia, BMI 18.6 anxiety Mental retardation Discharge Disposition: Home Discharge Instruct/Medications Diet: See Comment Diet comment: PUREE diet His normal diet Activity: No Restrictions, As Tolerated Follow Up/Referral: 7 days at the discharge clinic Follow up with his neurologist Medications: Keppra 500mg during the day and 250mg at bedtime Discharge Statement: "Patient was advised to return to the ER or call 911 if any headaches, dizziness, shortness of breath, chest pain, abdominal pain, bleeding, fevers, or worsening of medical condition. Patient was counseled about treatment plan, medications, possible side effects, patientverbalized understanding. All questions were answered to the best of my ability. This discharge took greater then 30 minutes in planning, reviewing documentation, counseling the patient, and discussing with other team members." ASSESSMENT ASSESSMENT Assessment Breakthrough seizures whiles on Keppra Fracture lateral wall right maxillary sinus History of seizures Cerebral palsy Cachexia, BMI 18.6 Mental retardation Date of Service: Jun 27, 2024 Billing Provider: BRIGITTE PETERSON MD Common Visit Codes: 77702-AAZ/OBS DISCH DAY >30min DRAGAN ALBRECHT RESIDENT Jun 27, 2024 18:14 BRIGITTE PETERSON MD Jun 28, 2024 09:50
[2024-06-27 18:15] VITALS: BP 103/63; PULSE 72; RESP 17; TEMP 98.7; O2SAT 92
[2024-06-27] MEDS ORDERED: ACET-1882 PO (18:17)
[2024-06-27] MEDS ORDERED: KEP500T PO ×2 (18:17)
[2024-06-28] MEDS ORDERED: levETIRAcetam 500 MG TAB PO SCH (10:00)
== END 2024-06-27 18:59 | disposition home or self-care (01) | DRG 115 ==
LOC: ER 20:09 → OVERFLOW 06-24 00:47 → CENTRAL 06-24 00:52
PROVIDERS: ADMIT Internal Medicine; ATTEND Emergency Medicine
DX: S02.40CA Maxillary fracture, right side, initial encounter for closed fracture (principal); R64 Cachexia; S01.81XA Laceration without foreign body of other part of head, initial encounter; F17.200 Nicotine dependence, unspecified, uncomplicated; G40.909 Epilepsy, unspecified, not intractable, without status epilepticus; F41.9 Anxiety disorder, unspecified; F79 Unspecified intellectual disabilities; G80.9 Cerebral palsy, unspecified; W18.39XA Other fall on same level, initial encounter; Q89.9 Congenital malformation, unspecified; Y92.009 Unspecified place in unspecified non-institutional (private) residence as the place of occurrence of the external cause; Z88.0 Allergy status to penicillin; Z79.82 Long term (current) use of aspirin; Z79.899 Other long term (current) drug therapy; Z83.3 Family history of diabetes mellitus; Z68.1 Body mass index [BMI] 19.9 or less, adult; Z82.49 Family history of ischemic heart disease and other diseases of the circulatory system; Y93.89 Activity, other specified; Y99.8 Other external cause status
CPT/HCPCS: 36415; 70450; 70486; 71045; 71101; 80048; 80053; 80307; 81001; 82542; 82550; 85014; 85018; 85025; 93017; 95819; 97116; 97163; 97530; 99291; G0378; J3490